=== PATIENT | male | born 1955 | race Caucasian/White ===

== ENCOUNTER 2019-03-06 13:56 | Inpatient (IN) | payer MEDICARE, OTHER ==
[~2019-03-06] VITALS: Ht 182.9 cm; Wt 108.3 kg
--- NOTE | 2019-03-06 14:17 | NUR ---
PT AMBULATORY TO ROOM 17 W/ C/O DIZZINESS AND FEELINGS OF "THE GROUND IS MOVING". SX LAST 15-20 SEC WHEN PT MOVES HIS HEAD LEFT OR RIGHT. THE SX THAT GOT PT CONCERNED STARTED YESTERDAY. PT DENIES HAVING FEELINGS OF NEAR SYNCOPE. PT RESTING ON ANAHI. JAGJIT.
--- NOTE | 2019-03-06 14:29 | NUR ---
ERP DR. EASLEY NOTIFIED OF PT ORTHOSTATIC VS.
[2019-03-06] MEDS ORDERED: SODIUM CHLORIDE FLUSH 10ML SYR IVF ONE (14:30)
[2019-03-06] MEDS ORDERED: HYDR25TA11 PO (14:34)
[2019-03-06] MEDS ORDERED: METF500T17 PO (14:34)
[2019-03-06] MEDS ORDERED: LOSA50TA14 PO (14:34)
[2019-03-06] MEDS ORDERED: GABA600T7 PO (14:34)
[2019-03-06] MEDS ORDERED: HYDR25TA6 PO (14:34)
[2019-03-06 14:38] LABS: BASOPHILS # (AUTO) 0.07 x10^3/uL (0-0.1); BASOPHILS % (AUTO) 1 % (0-1); EOSINOPHILS # (AUTO) 0.21 x10^3/uL (0-0.4); EOSINOPHILS % (AUTO) 2 % (1-7); LYMPHOCYTES # (AUTO) 1.87 x10^3/uL (1-3.4); LYMPHOCYTES % (AUTO) 17 % (22-44); MD NO; MEAN CORPUSCULAR HEMOGLOBIN 33.8 pg (27.5-34.5); MEAN CORPUSCULAR HGB CONC 33.3 g/dL (33.2-36.2); MEAN CORPUSCULAR VOLUME 101.6 fL (81-97); MEAN PLATELET VOLUME 9.2 fL (7.4-10.4); MONOCYTES # (AUTO) 0.88 x10^3/uL (0.2-0.8); MONOCYTES % (AUTO) 8 % (2-9); NEUTROPHILS # (AUTO) 7.93 x10^3/uL (1.8-6.8); NEUTROPHILS % (AUTO) 72 % (42-75); PLATELET COUNT 168 x10^3/uL (130-400); RED BLOOD COUNT 4.83 x10^6/uL (4.38-5.82)
[2019-03-06 14:49] LABS: ALBUMIN 3.5 g/dL (3.4-5.0); ANION GAP 6 mmol/L (5-15); CALCIUM 9.9 mg/dL (8.5-10.1); CHLORIDE 103 mmol/L (98-107); CREATININE 2.12 mg/dL (0.7-1.3)
[2019-03-06 14:53] LABS: TROPONIN I < 0.015 ng/mL (0.000-0.045)
--- NOTE | 2019-03-06 14:53 | NUR ---
XR AT BEDSIDE.
--- NOTE | 2019-03-06 15:12 | NUR ---
ERP DR. EASLEY MADE AWARE OF BUN/CREATININE LEVEL AND CT W/ CONTRAST ORDERS.
[2019-03-06] MEDS ORDERED: SODIUM CHLORIDE 0.9% 1,000ML IVBOLUS ONE ×3 (15:30→16:30)
--- NOTE | 2019-03-06 15:55 | NUR ---
PT RESTING ON GURNEY. NADN. MARADIAGA.
--- NOTE | 2019-03-06 16:15 | NUR ---
PT ONLY HAD 100 ML VOIDED URINE. ERP NOTIFIED AND PT PLACED FOR RECHECK.
--- NOTE | 2019-03-06 17:12 | NUR ---
PT RESTING ON GURNEY. LUDWIG VSS. PT STATES HE WILL DETERMINE AMA VS ADMIT STATUS ONCE PT FINDS OUT INFORMATION ABOUT S/O.
[2019-03-06] MEDS ORDERED: SODIUM CHLORIDE 0.9% 1,000 ML IV ONE (17:34)
--- NOTE | 2019-03-06 18:03 | NUR ---
PT RESTING ON GURNEY. NADN. MARADIAGA.
[2019-03-06] MEDS ORDERED: LORazepam 1MG TABLET PO PRN (18:30)
[2019-03-06] MEDS ORDERED: hydrALAzine 20 MG/ML, 1ML IVPush PRN (18:30)
--- NOTE | 2019-03-06 18:32 | NUR ---
REPORT GIVEN TO ALBA KHAN RN. ALL QUESTIONS ANSWERED. AWAITING PT TRANSPORT.
[2019-03-06 19:15] LABS: HEMOGLOBIN A1C 6.7 % (4.2-6.3)
[2019-03-06 19:51] LABS: MICROSCOPIC NOT IND
[2019-03-06 19:52] LABS: CULTURE INDICATED? NO
[2019-03-06 20:54] VITALS: BP 126/81
[2019-03-06] MEDS: INSULIN LISPRO 100 UNITS/ML, PEN SQ-INSULIN SCH (21:00)
[2019-03-06] MEDS: GABAPENTIN 300 MG CAPSULE PO SCH (21:48)
[2019-03-06] MEDS: SODIUM CHLORIDE 0.9% 1,000 ML IV SCH (21:49)
[2019-03-06] MEDS: HEPARIN 5,000 UNITS/ML, 1ML SQ SCH (21:49)
[2019-03-06 22:00] VITALS: BP 107/69
[2019-03-06] MEDS ORDERED: TACR0.5C2 PO (22:18)
[2019-03-07 04:44] VITALS: BP 124/77
[2019-03-07] MEDS: SODIUM CHLORIDE 0.9% 1,000 ML IV SCH (04:48)
[2019-03-07] MEDS: HEPARIN 5,000 UNITS/ML, 1ML SQ SCH (04:49)
[2019-03-07 05:04] LABS: BASOPHILS # (AUTO) 0.04 x10^3/uL (0-0.1); BASOPHILS % (AUTO) 1 % (0-1); EOSINOPHILS # (AUTO) 0.27 x10^3/uL (0-0.4); EOSINOPHILS % (AUTO) 3 % (1-7); LYMPHOCYTES % (AUTO) 24 % (22-44); MD NO; MEAN CORPUSCULAR HEMOGLOBIN 34.1 pg (27.5-34.5); MEAN CORPUSCULAR HGB CONC 33.2 g/dL (33.2-36.2); MEAN CORPUSCULAR VOLUME 102.6 fL (81-97); MEAN PLATELET VOLUME 9.5 fL (7.4-10.4); MONOCYTES # (AUTO) 0.76 x10^3/uL (0.2-0.8); MONOCYTES % (AUTO) 9 % (2-9); NEUTROPHILS # (AUTO) 5.54 x10^3/uL (1.8-6.8); NEUTROPHILS % (AUTO) 64 % (42-75); PLATELET COUNT 137 x10^3/uL (130-400); RED BLOOD COUNT 4.25 x10^6/uL (4.38-5.82); RED CELL DISTRIBUTION WIDTH 13.4 % (9.4-14.8)
[2019-03-07 05:07] LABS: ALANINE AMINOTRANSFERASE 24 U/L (12-78); ALBUMIN 2.8 g/dL (3.4-5.0); ANION GAP 3 mmol/L (5-15); CALCIUM 8.8 mg/dL (8.5-10.1); CHLORIDE 110 mmol/L (98-107); CREATININE 1.27 mg/dL (0.7-1.3)
[2019-03-07 05:09] LABS: ALKALINE PHOSPHATASE 38 U/L (45-117); BILIRUBIN,TOTAL 0.7 mg/dL (0.2-1.0); TOTAL PROTEIN 5.6 g/dL (6.4-8.2)
[2019-03-07] MEDS: INSULIN LISPRO 100 UNITS/ML, PEN SQ-INSULIN SCH ×2 (07:00→11:00)
[2019-03-07 07:27] VITALS: BP 115/78
[2019-03-07] MEDS: GABAPENTIN 300 MG CAPSULE PO SCH (09:32)
[2019-03-07 13:19] VITALS: BP 124/76
== END 2019-03-07 14:42 | disposition home or self-care (01) | DRG 640 ==
LOC: ED 16:48 → EDIP 18:10 → 3NE 19:31 → DCLOUNGE 03-07 14:24
PROVIDERS: ADMIT Family Medicine; ATTEND Family Medicine
DX: E86.0 Dehydration (principal); N17.0 Acute kidney failure with tubular necrosis; Z87.891 Personal history of nicotine dependence; E11.40 Type 2 diabetes mellitus with diabetic neuropathy, unspecified; E11.65 Type 2 diabetes mellitus with hyperglycemia; I95.9 Hypotension, unspecified; E86.1 Hypovolemia; I10 Essential (primary) hypertension; I71.4 Abdominal aortic aneurysm, without rupture; Z79.84 Long term (current) use of oral hypoglycemic drugs; Z72.89 Other problems related to lifestyle; Z71.41 Alcohol abuse counseling and surveillance of alcoholic
CPT/HCPCS: 36415; 71045; 76770; 80048; 80053; 81003; 82040; 82962; 83036; 83880; 84484; 85025; 93005; 96360; 96361; G0378; J1644; J1815; J7030

== ENCOUNTER 2019-05-15 05:23 | Inpatient (IN) | payer MEDICARE ==
[~2019-05-15] VITALS: Ht 182.9 cm; Wt 94.0 kg
[~2019-05-15 05:23] MED LIST: ATOR10TA9 PO; BIOT25005 PO; GABA600T7 PO; HYDR-826 PO; HYDR25TA6 PO; LOSA50TA14 PO; MAGNESIUM PO; METF500T17 PO; TACR0.5C2 PO; prevagen PO
[2019-05-15] MEDS ORDERED: LACTATED RINGERS 1,000 ML IV SCH (06:07)
[2019-05-15 06:10] VITALS: BP 137/95
[2019-05-15] MEDS ORDERED: PROTAMINE SULFATE 10 MG/ML, 5ML ONE (07:05)
[2019-05-15] MEDS ORDERED: THROMBIN (RECOMBINANT) 20,000 UNIT VIAL TP ONE (07:05)
[2019-05-15] MEDS ORDERED: HEPARIN 1,000 UNITS/ML, 30ML ONE ×3 (07:05→09:19)
[2019-05-15] MEDS ORDERED: BACITRACIN 50,000 UNIT ONE (07:06)
[2019-05-15] MEDS ORDERED: NITROGLYCERIN 5 MG/ML, 10ML ONE (07:23)
[2019-05-15] MEDS ORDERED: ALBUMIN HUMAN 5% 500 ML ONE (07:24)
[2019-05-15] MEDS ORDERED: MIDAZOLAM 1 MG/ML, 2ML ONE (07:25)
[2019-05-15] MEDS ORDERED: FENTANYL PF 250 MCG/5ML ONE ×3 (07:26→09:04)
[2019-05-15] MEDS ORDERED: ONDANSETRON ODT 8 MG PO PRN (07:30)
[2019-05-15] MEDS ORDERED: ONDANSETRON 2MG/ML, 2ML IV PRN ×2 (07:30→12:30)
[2019-05-15] MEDS ORDERED: ACETAMINOPHEN 325 MG TABLET PO PRN ×2 (07:30→15:00)
[2019-05-15] MEDS ORDERED: PROMETHAZINE 25 MG/ML, 1ML IV PRN (07:30)
[2019-05-15] MEDS ORDERED: LORazepam 2 MG/ML, 1ML IVPush PRN (07:30)
[2019-05-15] MEDS ORDERED: FENTANYL PF 100 MCG/2ML IV PRN (07:30)
[2019-05-15] MEDS ORDERED: OXYcodone 5 MG/5 ML ORAL.SOL UDC PO PRN (07:30)
[2019-05-15] MEDS ORDERED: PHENYLEPHRINE 10 MG/ML ONE (07:38)
[2019-05-15] MEDS ORDERED: CALCIUM CHLORIDE 13.6 MEQ/10 ML ONE (07:38)
[2019-05-15] MEDS ORDERED: INSULIN SINGLE DOSE, ER SQ-INSULIN ONE (08:46)
[2019-05-15] MEDS ORDERED: DEXTROSE 50%, 50ML SYRINGE ONE (09:00)
[2019-05-15] MEDS ORDERED: PROPOFOL 10 MG/ML, 20ML ONE (09:48)
[2019-05-15] MEDS ORDERED: hydrALAzine 20 MG/ML, 1ML ONE ×2 (09:48→10:28)
[2019-05-15] MEDS ORDERED: GLYCOPYRROLATE 0.2MG/1ML, 5ML ONE (09:48)
[2019-05-15] MEDS ORDERED: SUCCINYLCHOLINE 20 MG/ML, 10ML ONE (09:48)
[2019-05-15] MEDS ORDERED: NEOSTIGMINE 1 MG/ML, 10ML ONE (09:48)
[2019-05-15] MEDS ORDERED: ROCURONIUM 10MG/ML,5ML ONE (09:48)
[2019-05-15] MEDS ORDERED: DEXAMETHASONE 4 MG/ML, 1ML ONE (09:48)
[2019-05-15] MEDS ORDERED: CEFAZOLIN 1,000 MG ONE (09:48)
[2019-05-15] MEDS ORDERED: ONDANSETRON 2MG/ML, 2ML ONE (09:48)
[2019-05-15] MEDS ORDERED: SUGAMMADEX 200 MG/2 ML IVPush ONE (09:51)
[2019-05-15] MEDS ORDERED: LABETALOL 5MG/ML, 20ML IV PRN (10:00)
[2019-05-15] MEDS ORDERED: hydrALAzine 20 MG/ML, 1ML IV PRN (10:00)
[2019-05-15] MEDS ORDERED: HYDROmorphone 2 MG/ML, 1ML ONE (10:28)
[2019-05-15] MEDS: HYDROmorphone 2 MG/ML, 1ML IVPush PRN ×4 (10:37→11:11)
[2019-05-15] MEDS ORDERED: LORazepam 2 MG/ML, 1ML ONE (10:42)
[2019-05-15] MEDS ORDERED: LABETALOL 5 MG/ML SYR. (IV ONLY) IV PRN (11:30)
[2019-05-15] MEDS: POTASSIUM CHLORIDE 20 MEQ in LACTATED RINGERS 1,000 ML IV SCH ×2 (13:20→22:07)
[2019-05-15] MEDS: morphine SULFATE 10 MG/ML, 1ML IV PRN ×3 (13:32→23:03)
[2019-05-15 13:48] LABS: ANION GAP 6 mmol/L (5-15); CALCIUM 8.8 mg/dL (8.5-10.1); CHLORIDE 110 mmol/L (98-107); CREATININE 0.87 mg/dL (0.7-1.3)
[2019-05-15 13:49] LABS: BASOPHILS # (AUTO) 0.01 x10^3/uL (0-0.1); BASOPHILS % (AUTO) 0 % (0-1); EOSINOPHILS # (AUTO) 0.01 x10^3/uL (0-0.4); EOSINOPHILS % (AUTO) 0 % (1-7); LYMPHOCYTES # (AUTO) 0.98 x10^3/uL (1-3.4); LYMPHOCYTES % (AUTO) 7 % (22-44); MD NO; MEAN CORPUSCULAR HEMOGLOBIN 33.8 pg (27.5-34.5); MEAN CORPUSCULAR HGB CONC 33.7 g/dL (33.2-36.2); MEAN CORPUSCULAR VOLUME 100.4 fL (81-97); MEAN PLATELET VOLUME 8.9 fL (7.4-10.4); MONOCYTES # (AUTO) 0.84 x10^3/uL (0.2-0.8); MONOCYTES % (AUTO) 6 % (2-9); NEUTROPHILS # (AUTO) 13.05 x10^3/uL (1.8-6.8); NEUTROPHILS % (AUTO) 88 % (42-75); PLATELET COUNT 133 x10^3/uL (130-400)
[2019-05-15] MEDS ORDERED: BISACODYL 10 MG SUPP PR PRN (15:00)
[2019-05-15] MEDS ORDERED: POLYETHYLENE GLYCOL 17 GM PACKET PO PRN (15:00)
[2019-05-15] MEDS ORDERED: ONDANSETRON 2MG/ML, 2ML IVPush PRN (15:00)
[2019-05-15] MEDS: OXYcodone IR 5MG TABLET PO PRN ×4 (15:36→20:41)
[2019-05-15] MEDS: LABETALOL 5MG/ML, 20ML IVPush PRN (15:38)
[2019-05-15] MEDS: CEFAZOLIN PMX 1GM/50ML 50 ML IVPB SCH (16:55)
[2019-05-15] MEDS: INSULIN REGULAR, HUMAN 100 UNITS/ML, 3ML MEDIUM DOSE SS SQ-INSULIN SCH ×2 (16:55→21:31)
[2019-05-15] MEDS: ENALAPRILAT 1.25 MG/ML, 2ML IVPush PRN (17:57)
[2019-05-15] MEDS ORDERED: MORPHINE SULFATE 4 MG/ML, 1ML ONE (23:00)
[2019-05-16] MEDS: CEFAZOLIN PMX 1GM/50ML 50 ML IVPB SCH (00:59)
[2019-05-16] MEDS: OXYcodone IR 5MG TABLET PO PRN ×4 (00:59→15:31)
[2019-05-16] MEDS ORDERED: MORPHINE SULFATE 4 MG/ML, 1ML ONE ×2 (01:52→04:21)
[2019-05-16] MEDS: morphine SULFATE 10 MG/ML, 1ML IV PRN ×2 (01:54→04:22)
[2019-05-16 04:46] LABS: MEAN CORPUSCULAR HEMOGLOBIN 33.5 pg (27.5-34.5); MEAN CORPUSCULAR HGB CONC 32.7 g/dL (33.2-36.2); MEAN CORPUSCULAR VOLUME 102.5 fL (81-97); MEAN PLATELET VOLUME 8.6 fL (7.4-10.4); PLATELET COUNT 128 x10^3/uL (130-400); RED BLOOD COUNT 4.53 x10^6/uL (4.38-5.82); RED CELL DISTRIBUTION WIDTH 14.4 % (9.4-14.8)
[2019-05-16 04:55] LABS: ALBUMIN 3.2 g/dL (3.4-5.0); ANION GAP 7 mmol/L (5-15); CALCIUM 8.8 mg/dL (8.5-10.1); CHLORIDE 106 mmol/L (98-107)
[2019-05-16 04:59] LABS: ALANINE AMINOTRANSFERASE 31 U/L (12-78); ALKALINE PHOSPHATASE 48 U/L (45-117); BILIRUBIN,TOTAL 0.9 mg/dL (0.2-1.0); CREATININE 0.84 mg/dL (0.7-1.3)
[2019-05-16] MEDS ORDERED: HYDROmorphone 2 MG/ML, 1ML ONE (05:24)
[2019-05-16] MEDS: ENOXAPARIN 40 MG/0.4 ML SQ SCH (05:25)
[2019-05-16] MEDS: HYDROmorphone 2 MG/ML, 1ML IVPush PRN ×3 (05:26→17:45)
[2019-05-16 05:41] LABS: BASOPHILS # (AUTO) 0.02 x10^3/uL (0-0.1); BASOPHILS % (AUTO) 0 % (0-1); EOSINOPHILS # (AUTO) 0.04 x10^3/uL (0-0.4); EOSINOPHILS % (AUTO) 0 % (1-7); LYMPHOCYTES # (AUTO) 1.78 x10^3/uL (1-3.4); LYMPHOCYTES % (AUTO) 14 % (22-44); MD SCAN; MONOCYTES # (AUTO) 1.35 x10^3/uL (0.2-0.8); MONOCYTES % (AUTO) 10 % (2-9); NEUTROPHILS # (AUTO) 9.95 x10^3/uL (1.8-6.8); NEUTROPHILS % (AUTO) 76 % (42-75)
[2019-05-16] MEDS: POTASSIUM CHLORIDE 20 MEQ in LACTATED RINGERS 1,000 ML IV SCH (06:46)
[2019-05-16] MEDS: INSULIN REGULAR, HUMAN 100 UNITS/ML, 3ML MEDIUM DOSE SS SQ-INSULIN SCH ×4 (07:00→23:11)
[2019-05-16] MEDS: POTASSIUM CHLORIDE 20 MEQ, MAGNESIUM SULFATE 1 GM, MVI ADULT 10 ML, THIAMINE 200 MG, FO... IV SCH (08:07)
[2019-05-16] MEDS: SENNA/DOCUSATE TABLET PO SCH (08:07)
[2019-05-16] MEDS: CHLORDIAZEPOXIDE 25 MG CAPSULE PO SCH ×4 (08:07→20:20)
[2019-05-16] MEDS: LORazepam 2 MG/ML, 1ML IVPush PRN (20:20)
[2019-05-16] MEDS: LABETALOL 5MG/ML, 20ML IVPush PRN (20:20)
[2019-05-17] MEDS: LABETALOL 5MG/ML, 20ML IVPush PRN ×4 (00:59→20:29)
[2019-05-17] MEDS: HYDROmorphone 2 MG/ML, 1ML IVPush PRN ×2 (01:14→22:40)
[2019-05-17 04:41] LABS: MEAN CORPUSCULAR HEMOGLOBIN 33.9 pg (27.5-34.5); MEAN CORPUSCULAR HGB CONC 32.6 g/dL (33.2-36.2); MEAN CORPUSCULAR VOLUME 103.9 fL (81-97); MEAN PLATELET VOLUME 8.9 fL (7.4-10.4); PLATELET COUNT 110 x10^3/uL (130-400); RED BLOOD COUNT 4.21 x10^6/uL (4.38-5.82); RED CELL DISTRIBUTION WIDTH 14.4 % (9.4-14.8)
[2019-05-17 04:52] LABS: ALANINE AMINOTRANSFERASE 27 U/L (12-78); ALBUMIN 2.8 g/dL (3.4-5.0); ANION GAP 5 mmol/L (5-15); CALCIUM 8.9 mg/dL (8.5-10.1); CHLORIDE 104 mmol/L (98-107); CREATININE 0.77 mg/dL (0.7-1.3)
[2019-05-17 04:55] LABS: ALKALINE PHOSPHATASE 48 U/L (45-117); BILIRUBIN,TOTAL 1.5 mg/dL (0.2-1.0); TOTAL PROTEIN 5.9 g/dL (6.4-8.2)
[2019-05-17] MEDS: CHLORDIAZEPOXIDE 25 MG CAPSULE PO SCH ×4 (05:42→21:47)
[2019-05-17] MEDS: ENOXAPARIN 40 MG/0.4 ML SQ SCH ×2 (05:42→16:30)
[2019-05-17] MEDS: INSULIN REGULAR, HUMAN 100 UNITS/ML, 3ML MEDIUM DOSE SS SQ-INSULIN SCH ×4 (05:43→21:47)
[2019-05-17 05:50] LABS: BASOPHILS # (AUTO) 0.01 x10^3/uL (0-0.1); BASOPHILS % (AUTO) 0 % (0-1); EOSINOPHILS # (AUTO) 0.02 x10^3/uL (0-0.4); EOSINOPHILS % (AUTO) 0 % (1-7); LYMPHOCYTES # (AUTO) 0.89 x10^3/uL (1-3.4); LYMPHOCYTES % (AUTO) 6 % (22-44); MD SCAN; MONOCYTES # (AUTO) 1.52 x10^3/uL (0.2-0.8); MONOCYTES % (AUTO) 11 % (2-9); NEUTROPHILS # (AUTO) 11.41 x10^3/uL (1.8-6.8); NEUTROPHILS % (AUTO) 82 % (42-75)
[2019-05-17] MEDS ORDERED: MAGNESIUM SULFATE 4 GM in SODIUM CHLORIDE 0.9% 100 ML IV ONE (07:30)
[2019-05-17] MEDS: POTASSIUM CHLORIDE 20 MEQ, MAGNESIUM SULFATE 1 GM, MVI ADULT 10 ML, THIAMINE 200 MG, FO... IV SCH (08:51)
[2019-05-17] MEDS: SENNA/DOCUSATE TABLET PO SCH (11:00)
[2019-05-17] MEDS: OXYcodone IR 5MG TABLET PO PRN (13:09)
[2019-05-17] MEDS: LORazepam 2 MG/ML, 1ML IVPush PRN ×6 (15:37→22:39)
[2019-05-17] MEDS: SODIUM CHLORIDE 0.9% 1,000 ML IV SCH (18:40)
[2019-05-18] MEDS: LABETALOL 5MG/ML, 20ML IVPush PRN ×3 (04:40→19:07)
[2019-05-18 05:24] LABS: MEAN CORPUSCULAR HEMOGLOBIN 34.4 pg (27.5-34.5); MEAN CORPUSCULAR HGB CONC 33.1 g/dL (33.2-36.2); MEAN CORPUSCULAR VOLUME 103.9 fL (81-97); MEAN PLATELET VOLUME 9.2 fL (7.4-10.4); PLATELET COUNT 125 x10^3/uL (130-400); RED BLOOD COUNT 4.12 x10^6/uL (4.38-5.82); RED CELL DISTRIBUTION WIDTH 14.7 % (9.4-14.8)
[2019-05-18] MEDS ORDERED: NALOXONE 0.4 MG/ML, 1ML IVPush ONE (05:30)
[2019-05-18] MEDS ORDERED: FUROSEMIDE 20 MG/2 ML IV ONE (05:30)
[2019-05-18 05:33] LABS: ANION GAP 4 mmol/L (5-15); CALCIUM 9.1 mg/dL (8.5-10.1); CHLORIDE 103 mmol/L (98-107)
[2019-05-18] MEDS: CHLORDIAZEPOXIDE 25 MG CAPSULE PO SCH ×4 (06:00→20:17)
[2019-05-18] MEDS: INSULIN REGULAR, HUMAN 100 UNITS/ML, 3ML MEDIUM DOSE SS SQ-INSULIN SCH ×2 (06:02→11:00)
[2019-05-18 06:16] LABS: BASOPHILS % (AUTO) 0 % (0-1); EOSINOPHILS # (AUTO) 0.17 x10^3/uL (0-0.4); EOSINOPHILS % (AUTO) 1 % (1-7); LYMPHOCYTES # (AUTO) 0.84 x10^3/uL (1-3.4); LYMPHOCYTES % (AUTO) 6 % (22-44); MD SCAN; MONOCYTES # (AUTO) 1.61 x10^3/uL (0.2-0.8); MONOCYTES % (AUTO) 11 % (2-9); NEUTROPHILS # (AUTO) 11.49 x10^3/uL (1.8-6.8); NEUTROPHILS % (AUTO) 81 % (42-75)
[2019-05-18] MEDS ORDERED: [UNRECOGNIZED DRUG - OTHER] IV PRN (08:30)
[2019-05-18] MEDS ORDERED: NICARDIPINE IV PRN ×2 (08:30→14:00)
[2019-05-18] MEDS: ENALAPRILAT 1.25 MG/ML, 2ML IVPush PRN (08:42)
[2019-05-18] MEDS: SENNA/DOCUSATE TABLET PO SCH (09:00)
[2019-05-18] MEDS: POTASSIUM CHLORIDE 20 MEQ, MAGNESIUM SULFATE 1 GM, MVI ADULT 10 ML, THIAMINE 200 MG, FO... IV SCH (09:31)
[2019-05-18] MEDS: LORazepam 2 MG/ML, 1ML IVPush PRN ×6 (11:05→23:16)
[2019-05-18] MEDS: INSULIN REGULAR 100 UNITS/ML, 3ML VIAL SQ-INSULIN SCH ×2 (12:01→17:58)
[2019-05-18] MEDS ORDERED: SODIUM CHLORIDE 0.9% IV PRN (14:00)
[2019-05-18] MEDS: ENOXAPARIN 40 MG/0.4 ML SQ SCH (16:34)
[2019-05-18] MEDS: SODIUM CHLORIDE 0.9% 1,000 ML IV SCH (20:00)
[2019-05-19] MEDS: LORazepam 2 MG/ML, 1ML IVPush PRN ×6 (00:58→11:44)
[2019-05-19 04:16] LABS: BASOPHILS # (AUTO) 0.02 x10^3/uL (0-0.1); BASOPHILS % (AUTO) 0 % (0-1); EOSINOPHILS # (AUTO) 0.21 x10^3/uL (0-0.4); EOSINOPHILS % (AUTO) 2 % (1-7); LYMPHOCYTES # (AUTO) 0.69 x10^3/uL (1-3.4); LYMPHOCYTES % (AUTO) 7 % (22-44); MD NO; MEAN CORPUSCULAR HEMOGLOBIN 34.1 pg (27.5-34.5); MEAN CORPUSCULAR HGB CONC 33.2 g/dL (33.2-36.2); MEAN CORPUSCULAR VOLUME 102.7 fL (81-97); MEAN PLATELET VOLUME 8.3 fL (7.4-10.4); MONOCYTES # (AUTO) 1.36 x10^3/uL (0.2-0.8); MONOCYTES % (AUTO) 14 % (2-9); NEUTROPHILS # (AUTO) 7.79 x10^3/uL (1.8-6.8); NEUTROPHILS % (AUTO) 77 % (42-75); PLATELET COUNT 153 x10^3/uL (130-400); RED BLOOD COUNT 3.86 x10^6/uL (4.38-5.82); RED CELL DISTRIBUTION WIDTH 14.1 % (9.4-14.8)
[2019-05-19 04:24] LABS: ANION GAP 4 mmol/L (5-15); CALCIUM 8.9 mg/dL (8.5-10.1); CHLORIDE 105 mmol/L (98-107); CREATININE 0.66 mg/dL (0.7-1.3)
[2019-05-19] MEDS: INSULIN REGULAR 100 UNITS/ML, 3ML VIAL SQ-INSULIN SCH ×4 (05:44→17:52)
[2019-05-19] MEDS ORDERED: DEXMEDETOMIDINE 200 MCG in SODIUM CHLORIDE 0.9% 48 ML IV PRN (08:00)
--- NOTE | 2019-05-19 08:35 | NUR ---
TF goal recs: Promote @ 85 ml/hour on propofol and 90 ml/hour off propofol
[2019-05-19] MEDS: CHLORDIAZEPOXIDE 25 MG CAPSULE PO SCH (09:34)
[2019-05-19] MEDS: SENNA/DOCUSATE TABLET PO SCH (09:34)
[2019-05-19] MEDS: POTASSIUM CHLORIDE 20 MEQ, MAGNESIUM SULFATE 1 GM, MVI ADULT 10 ML, THIAMINE 200 MG, FO... IV SCH (09:39)
[2019-05-19] MEDS: PROPOFOL 100 ML IV PRN ×2 (12:40→22:34)
[2019-05-19] MEDS ORDERED: LIDOCAINE-MPF 1%, 2ML ENDO PRN (13:00)
[2019-05-19] MEDS ORDERED: PHARMACY MAY ADJ FOR RENAL FX MC SCH (13:00)
[2019-05-19] MEDS ORDERED: ETOMIDATE 20 MG/10 ML IVPush ONE (13:30)
[2019-05-19] MEDS ORDERED: MIDAZOLAM 1 MG/ML, 5ML IVPush ONE (13:30)
[2019-05-19] MEDS: PANTOPRAZOLE 40 MG IV IV SCH (14:45)
[2019-05-19] MEDS: MIDAZOLAM HCL 25 MG in SODIUM CHLORIDE 0.9% 245 ML IV PRN ×2 (14:46→22:33)
[2019-05-19] MEDS: ENOXAPARIN 40 MG/0.4 ML SQ SCH (16:44)
[2019-05-19] MEDS: SODIUM CHLORIDE 0.9% 1,000 ML IV SCH (20:00)
[2019-05-19] MEDS: morphine SULFATE 10 MG/ML, 1ML IV PRN (22:35)
[2019-05-20 05:47] LABS: MEAN CORPUSCULAR HEMOGLOBIN 34.2 pg (27.5-34.5); MEAN CORPUSCULAR HGB CONC 33.6 g/dL (33.2-36.2); MEAN CORPUSCULAR VOLUME 101.6 fL (81-97); MEAN PLATELET VOLUME 8.8 fL (7.4-10.4); PLATELET COUNT 154 x10^3/uL (130-400); RED BLOOD COUNT 3.71 x10^6/uL (4.38-5.82); RED CELL DISTRIBUTION WIDTH 14.6 % (9.4-14.8)
[2019-05-20 05:57] LABS: ANION GAP 5 mmol/L (5-15); CALCIUM 8.4 mg/dL (8.5-10.1); CHLORIDE 109 mmol/L (98-107); CREATININE 0.59 mg/dL (0.7-1.3)
[2019-05-20] MEDS: INSULIN REGULAR 100 UNITS/ML, 3ML VIAL SQ-INSULIN SCH ×5 (06:00→23:38)
[2019-05-20 06:26] LABS: MD YES
[2019-05-20 06:31] LABS: ANISOCYTOSIS 1+; BAND#(MANUAL) 0.75 x10^3/uL; BANDS%(MANUAL) 10 % (0-7); EOS#(MANUAL) 0.23 x10^3/uL (0.0-0.4); EOS% (MANUAL) 3 % (1-7); LYMPH#(MANUAL) 1.05 x10^3/uL (1-3.4); LYMPHS% (MANUAL) 14 % (22-44); MONOS#(MANUAL) 0.45 x10^3/uL (0.3-2.7); MONOS% (MANUAL) 6 % (2-9); SEG#(MANUAL) 5.03 x10^3/uL (1.8-6.8); SEGS% (MANUAL) 67 % (42-75)
[2019-05-20 06:32] LABS: <PLATELET ESTIMATE> ADEQUATE; <PLT MORPHOLOGY> NORMAL PLT MORPH
[2019-05-20] MEDS: POTASSIUM CHLORIDE 20 MEQ, MAGNESIUM SULFATE 1 GM, MVI ADULT 10 ML, THIAMINE 200 MG, FO... IV SCH (08:00)
[2019-05-20] MEDS: MIDAZOLAM HCL 25 MG in SODIUM CHLORIDE 0.9% 245 ML IV PRN ×2 (08:00→16:43)
[2019-05-20] MEDS: SENNA/DOCUSATE TABLET PO SCH (09:08)
[2019-05-20] MEDS: PANTOPRAZOLE 40 MG IV IV SCH (09:08)
[2019-05-20] MEDS: METOCLOPRAMIDE 5 MG/ML, 2ML IVPush SCH ×3 (11:19→23:38)
[2019-05-20] MEDS: PROPOFOL 100 ML IV PRN ×2 (11:19→16:44)
[2019-05-20] MEDS: SODIUM CHLORIDE 0.9% 1,000 ML IV SCH (16:43)
[2019-05-20] MEDS: ENOXAPARIN 40 MG/0.4 ML SQ SCH (16:45)
[2019-05-21] MEDS: MIDAZOLAM HCL 25 MG in SODIUM CHLORIDE 0.9% 245 ML IV PRN ×3 (00:04→17:31)
[2019-05-21] MEDS: PROPOFOL 100 ML IV PRN ×4 (01:03→23:40)
[2019-05-21 04:12] LABS: BASOPHILS # (AUTO) 0.02 x10^3/uL (0-0.1); BASOPHILS % (AUTO) 0 % (0-1); EOSINOPHILS # (AUTO) 0.21 x10^3/uL (0-0.4); EOSINOPHILS % (AUTO) 2 % (1-7); LYMPHOCYTES % (AUTO) 9 % (22-44); MD NO; MEAN CORPUSCULAR HEMOGLOBIN 33.9 pg (27.5-34.5); MEAN CORPUSCULAR HGB CONC 33.1 g/dL (33.2-36.2); MEAN CORPUSCULAR VOLUME 102.2 fL (81-97); MEAN PLATELET VOLUME 8.8 fL (7.4-10.4); MONOCYTES # (AUTO) 1.08 x10^3/uL (0.2-0.8); MONOCYTES % (AUTO) 12 % (2-9); NEUTROPHILS # (AUTO) 7.05 x10^3/uL (1.8-6.8); NEUTROPHILS % (AUTO) 77 % (42-75); PLATELET COUNT 130 x10^3/uL (130-400); RED BLOOD COUNT 3.54 x10^6/uL (4.38-5.82); RED CELL DISTRIBUTION WIDTH 14.6 % (9.4-14.8)
[2019-05-21 04:23] LABS: ANION GAP 6 mmol/L (5-15); CALCIUM 8.4 mg/dL (8.5-10.1); CHLORIDE 111 mmol/L (98-107); CREATININE 0.57 mg/dL (0.7-1.3)
[2019-05-21] MEDS: METOCLOPRAMIDE 5 MG/ML, 2ML IVPush SCH ×4 (04:46→23:39)
[2019-05-21] MEDS: INSULIN REGULAR 100 UNITS/ML, 3ML VIAL SQ-INSULIN SCH ×4 (06:00→23:39)
[2019-05-21] MEDS ORDERED: MIDAZOLAM 1 MG/ML, 5ML ONE (08:00)
[2019-05-21] MEDS ORDERED: ETOMIDATE 20 MG/10 ML ONE (08:00)
[2019-05-21] MEDS ORDERED: PROPOFOL 100 ML IV ONE (08:00)
[2019-05-21] MEDS ORDERED: TPN PER PHARMACY MC PRN (09:00)
[2019-05-21] MEDS: SENNA/DOCUSATE TABLET PO SCH (09:00)
[2019-05-21] MEDS: PANTOPRAZOLE 40 MG IV IV SCH (09:49)
[2019-05-21] MEDS ORDERED: SODIUM CHLORIDE 0.9% 1,000 ML IV SCH (12:00)
[2019-05-21] MEDS ORDERED: ALBUTEROL/IPRATROPIUM 2.5MG/0.5MG, 3 ML HHN SCH (15:00)
[2019-05-21] MEDS: ENOXAPARIN 40 MG/0.4 ML SQ SCH (16:25)
[2019-05-21] MEDS: FILTER, DISP 1.2 MICRON FOR TPN/PVN IV PRN (16:59)
[2019-05-21] MEDS ORDERED: AMINO ACID 10% IV SCH ×2 (17:00)
[2019-05-21] MEDS ORDERED: [UNRECOGNIZED DRUG - OTHER] IV SCH (17:00)
[2019-05-21] MEDS ORDERED: DEXTROSE 10% 500 ML IV PRN (17:00)
[2019-05-21] MEDS ORDERED: [UNRECOGNIZED DRUG - OTHER] IV SCH (17:00)
[2019-05-21] MEDS ORDERED: DEXTROSE 70% IV SCH ×2 (17:00)
[2019-05-21] MEDS ORDERED: FAT EMUL IV SCH ×2 (17:00)
[2019-05-21] MEDS ORDERED: SMOF TPN IV SCH ×2 (17:00)
[2019-05-21] MEDS ORDERED: DEXTROSE 50%, 50ML SYRINGE IVPush PRN (17:00)
[2019-05-21] MEDS: ALBUTEROL/IPRATROPIUM 2.5MG/0.5MG, 3 ML INLINE SCH ×2 (18:59→22:28)
[2019-05-22] MEDS: ALBUTEROL/IPRATROPIUM 2.5MG/0.5MG, 3 ML INLINE SCH ×6 (02:19→22:28)
[2019-05-22] MEDS: MIDAZOLAM HCL 25 MG in SODIUM CHLORIDE 0.9% 245 ML IV PRN (02:39)
[2019-05-22] MEDS: LABETALOL 5MG/ML, 20ML IVPush PRN ×2 (03:45→08:20)
[2019-05-22] MEDS: PROPOFOL 100 ML IV PRN (05:34)
[2019-05-22] MEDS: METOCLOPRAMIDE 5 MG/ML, 2ML IVPush SCH ×4 (05:34→23:14)
[2019-05-22] MEDS: INSULIN REGULAR 100 UNITS/ML, 3ML VIAL SQ-INSULIN SCH ×4 (05:46→23:13)
[2019-05-22 05:57] LABS: MEAN CORPUSCULAR HEMOGLOBIN 34.3 pg (27.5-34.5); MEAN CORPUSCULAR HGB CONC 33.7 g/dL (33.2-36.2); MEAN CORPUSCULAR VOLUME 101.6 fL (81-97); MEAN PLATELET VOLUME 8.8 fL (7.4-10.4); PLATELET COUNT 93 x10^3/uL (130-400); RED BLOOD COUNT 3.56 x10^6/uL (4.38-5.82); RED CELL DISTRIBUTION WIDTH 14.5 % (9.4-14.8)
[2019-05-22 06:05] LABS: ALBUMIN 2.2 g/dL (3.4-5.0); ANION GAP 7 mmol/L (5-15); CALCIUM 8.6 mg/dL (8.5-10.1); CHLORIDE 111 mmol/L (98-107)
[2019-05-22 06:10] LABS: ALANINE AMINOTRANSFERASE 29 U/L (12-78); ALKALINE PHOSPHATASE 49 U/L (45-117); BILIRUBIN,TOTAL 0.8 mg/dL (0.2-1.0); CREATININE 0.61 mg/dL (0.7-1.3); PREALBUMIN 4.6 mg/dL (20.0-40.0); TOTAL PROTEIN 5.3 g/dL (6.4-8.2); TRIGLYCERIDES 169 mg/dL (50-200)
[2019-05-22 06:17] LABS: BASOPHILS # (AUTO) 0.01 x10^3/uL (0-0.1); BASOPHILS % (AUTO) 0 % (0-1); EOSINOPHILS # (AUTO) 0.16 x10^3/uL (0-0.4); EOSINOPHILS % (AUTO) 2 % (1-7); LYMPHOCYTES # (AUTO) 0.84 x10^3/uL (1-3.4); LYMPHOCYTES % (AUTO) 9 % (22-44); MD SCAN; MONOCYTES % (AUTO) 9 % (2-9); NEUTROPHILS # (AUTO) 7.18 x10^3/uL (1.8-6.8); NEUTROPHILS % (AUTO) 80 % (42-75)
[2019-05-22] MEDS: SENNA/DOCUSATE TABLET PO SCH (09:00)
[2019-05-22] MEDS: PANTOPRAZOLE 40 MG IV IV SCH (09:09)
[2019-05-22] MEDS: DEXMEDETOMIDINE 1,000 MCG in SODIUM CHLORIDE 0.9% 240 ML IV PRN ×2 (10:40→21:45)
[2019-05-22] MEDS: LISINOPRIL 10 MG TABLET PO SCH ×2 (10:43→21:29)
[2019-05-22] MEDS ORDERED: AMINO ACID 10% IV SCH ×2 (17:00)
[2019-05-22] MEDS ORDERED: SMOF TPN IV SCH ×2 (17:00)
[2019-05-22] MEDS ORDERED: FAT EMUL IV SCH ×2 (17:00)
[2019-05-22] MEDS ORDERED: [UNRECOGNIZED DRUG - OTHER] IV SCH ×2 (17:00)
[2019-05-22] MEDS ORDERED: DEXTROSE 70% IV SCH ×2 (17:00)
[2019-05-22] MEDS: LORazepam 2 MG/ML, 1ML IVPush PRN (23:36)
[2019-05-23] MEDS: ALBUTEROL/IPRATROPIUM 2.5MG/0.5MG, 3 ML INLINE SCH ×2 (03:00→07:15)
[2019-05-23] MEDS: METOCLOPRAMIDE 5 MG/ML, 2ML IVPush SCH ×4 (05:27→23:00)
[2019-05-23] MEDS: INSULIN REGULAR 100 UNITS/ML, 3ML VIAL SQ-INSULIN SCH ×3 (05:37→17:21)
[2019-05-23 06:00] LABS: ANION GAP 4 mmol/L (5-15); CALCIUM 8.5 mg/dL (8.5-10.1); CHLORIDE 113 mmol/L (98-107)
[2019-05-23 06:34] LABS: CREATININE 0.62 mg/dL (0.7-1.3)
[2019-05-23] MEDS: DEXMEDETOMIDINE 1,000 MCG in SODIUM CHLORIDE 0.9% 240 ML IV PRN ×2 (06:40→21:17)
[2019-05-23 06:54] LABS: MEAN CORPUSCULAR HEMOGLOBIN 34.4 pg (27.5-34.5); MEAN CORPUSCULAR VOLUME 101.3 fL (81-97); MEAN PLATELET VOLUME 8.4 fL (7.4-10.4); PLATELET COUNT 55 x10^3/uL (130-400); RED BLOOD COUNT 3.69 x10^6/uL (4.38-5.82); RED CELL DISTRIBUTION WIDTH 14.6 % (9.4-14.8)
[2019-05-23 06:59] LABS: BASOPHILS # (AUTO) 0.01 x10^3/uL (0-0.1); BASOPHILS % (AUTO) 0 % (0-1); EOSINOPHILS # (AUTO) 0.16 x10^3/uL (0-0.4); EOSINOPHILS % (AUTO) 2 % (1-7); LYMPHOCYTES # (AUTO) 0.87 x10^3/uL (1-3.4); LYMPHOCYTES % (AUTO) 9 % (22-44); MD SCAN; MONOCYTES % (AUTO) 7 % (2-9); NEUTROPHILS # (AUTO) 7.98 x10^3/uL (1.8-6.8); NEUTROPHILS % (AUTO) 82 % (42-75)
[2019-05-23] MEDS: SENNA/DOCUSATE TABLET PO SCH (07:52)
[2019-05-23] MEDS: LISINOPRIL 10 MG TABLET PO SCH (07:52)
[2019-05-23] MEDS: PANTOPRAZOLE 40 MG IV IV SCH (07:52)
[2019-05-23] MEDS: ENALAPRILAT 1.25 MG/ML, 2ML IVPush PRN (08:52)
[2019-05-23] MEDS ORDERED: INSULIN GLARGINE 100 UNITS/ML, PEN SQ-INSULIN SCH (09:00)
[2019-05-23] MEDS: LABETALOL 5MG/ML, 20ML IVPush PRN (10:08)
[2019-05-23] MEDS ORDERED: GLYCERIN ADULT SUPP PR ONE (11:00)
[2019-05-23] MEDS ORDERED: ALBUTEROL SULFATE 2.5 MG/3 ML NPPB PRN (12:00)
[2019-05-23] MEDS ORDERED: SODIUM CHLORIDE INHALATION 7%, 4 ML NPPB ONE (12:00)
[2019-05-23 13:15] LABS: O2 FLOW 4 L/min
[2019-05-23 14:25] LABS: HIT RESULT NEGATIVE (NEGATIVE)
[2019-05-23] MEDS ORDERED: DEXTROSE 70% IV SCH (17:00)
[2019-05-23] MEDS ORDERED: SMOF TPN IV SCH (17:00)
[2019-05-23] MEDS ORDERED: AMINO ACID 10% IV SCH (17:00)
[2019-05-23] MEDS ORDERED: [UNRECOGNIZED DRUG - OTHER] IV SCH (17:00)
[2019-05-23] MEDS ORDERED: FAT EMUL IV SCH (17:00)
[2019-05-23] MEDS: LISINOPRIL 20 MG TABLET PO SCH (21:17)
[2019-05-23] MEDS: LORazepam 2 MG/ML, 1ML IVPush PRN (21:17)
[2019-05-24] MEDS: INSULIN REGULAR 100 UNITS/ML, 3ML VIAL SQ-INSULIN SCH ×4 (00:21→18:21)
[2019-05-24] MEDS: LORazepam 2 MG/ML, 1ML IVPush PRN ×3 (03:33→21:04)
[2019-05-24 04:45] LABS: ANION GAP 5 mmol/L (5-15); CALCIUM 8.4 mg/dL (8.5-10.1); CHLORIDE 113 mmol/L (98-107); CREATININE 0.64 mg/dL (0.7-1.3)
[2019-05-24] MEDS: METOCLOPRAMIDE 5 MG/ML, 2ML IVPush SCH ×3 (05:00→17:06)
[2019-05-24 05:10] LABS: MEAN CORPUSCULAR HEMOGLOBIN 33.4 pg (27.5-34.5); MEAN CORPUSCULAR HGB CONC 33.4 g/dL (33.2-36.2); RED BLOOD COUNT 3.67 x10^6/uL (4.38-5.82); RED CELL DISTRIBUTION WIDTH 14.2 % (9.4-14.8)
[2019-05-24 05:40] LABS: MEAN PLATELET VOLUME 9.5 fL (7.4-10.4)
[2019-05-24 05:41] LABS: MD YES
[2019-05-24 05:43] LABS: BAND#(MANUAL) 0.84 x10^3/uL; BANDS%(MANUAL) 7 % (0-7); LYMPH#(MANUAL) 0.84 x10^3/uL (1-3.4); LYMPHS% (MANUAL) 7 % (22-44); METAMYELOCYTES# (MANUAL) 0.12 x10^3/uL (0-0); METAMYELOCYTES% (MANUAL) 1 % (0-1); MONOS#(MANUAL) 0.84 x10^3/uL (0.3-2.7); MONOS% (MANUAL) 7 % (2-9); MYELOCYTES# (MANUAL) 0.12 x10^3/uL (0-0); MYELOCYTES% (MANUAL) 1 % (0-0); SEG#(MANUAL) 9.24 x10^3/uL (1.8-6.8); SEGS% (MANUAL) 77 % (42-75)
[2019-05-24 05:45] LABS: <PLATELET ESTIMATE> DECREASED; <PLT MORPHOLOGY> NORMAL PLT MORPH
[2019-05-24 05:51] LABS: PLATELET COUNT 15 x10^3/uL (130-400)
[2019-05-24 06:45] VITALS: BP 112/65
[2019-05-24 07:00] VITALS: BP 133/67
[2019-05-24] MEDS: SENNA/DOCUSATE TABLET PO SCH (08:43)
[2019-05-24] MEDS: LISINOPRIL 20 MG TABLET PO SCH ×2 (08:43→21:04)
[2019-05-24] MEDS: PANTOPRAZOLE 40 MG IV IV SCH (08:44)
[2019-05-24 10:14] VITALS: BP 115/72
[2019-05-24] MEDS: QUETIAPINE 25MG TABLET PO SCH ×3 (10:33→21:03)
[2019-05-24 11:12] VITALS: BP 96/58
[2019-05-24] MEDS: OXYcodone IR 5MG TABLET PO PRN (15:16)
[2019-05-24] MEDS: LABETALOL 5MG/ML, 20ML IVPush PRN ×2 (15:35→22:07)
[2019-05-24] MEDS ORDERED: DEXTROSE 70% IV SCH (17:00)
[2019-05-24] MEDS ORDERED: [UNRECOGNIZED DRUG - OTHER] IV SCH (17:00)
[2019-05-24] MEDS ORDERED: SMOF TPN IV SCH (17:00)
[2019-05-24] MEDS ORDERED: FAT EMUL IV SCH (17:00)
[2019-05-24] MEDS ORDERED: AMINO ACID 10% IV SCH (17:00)
[2019-05-25] MEDS: INSULIN REGULAR 100 UNITS/ML, 3ML VIAL SQ-INSULIN SCH ×4 (00:27→17:52)
[2019-05-25] MEDS: METOCLOPRAMIDE 5 MG/ML, 2ML IVPush SCH ×4 (00:27→17:52)
[2019-05-25 04:31] LABS: MEAN CORPUSCULAR HEMOGLOBIN 33.6 pg (27.5-34.5); MEAN CORPUSCULAR HGB CONC 33.1 g/dL (33.2-36.2); MEAN CORPUSCULAR VOLUME 101.7 fL (81-97); MEAN PLATELET VOLUME 10.4 fL (7.4-10.4); RED BLOOD COUNT 3.68 x10^6/uL (4.38-5.82); RED CELL DISTRIBUTION WIDTH 14.6 % (9.4-14.8)
[2019-05-25 04:32] LABS: INTERNATIONAL NORMALIZED RATIO 1.29 (0.93-1.1); PROTHROMBIN TIME 13.4 Seconds (9.6-11.5)
[2019-05-25 04:37] LABS: ANION GAP 6 mmol/L (5-15); CALCIUM 8.8 mg/dL (8.5-10.1); CHLORIDE 109 mmol/L (98-107); CREATININE 0.73 mg/dL (0.7-1.3); TRIGLYCERIDES 152 mg/dL (50-200)
[2019-05-25 04:46] LABS: PLATELET COUNT 16 x10^3/uL (130-400)
[2019-05-25 04:58] LABS: MD YES
[2019-05-25 04:59] LABS: BANDS%(MANUAL) 3 % (0-7); EOS% (MANUAL) 3 % (1-7); LYMPH#(MANUAL) 2.51 x10^3/uL (1-3.4); LYMPHS% (MANUAL) 19 % (22-44); METAMYELOCYTES# (MANUAL) 0.26 x10^3/uL (0-0); METAMYELOCYTES% (MANUAL) 2 % (0-1); MONOS#(MANUAL) 1.85 x10^3/uL (0.3-2.7); MONOS% (MANUAL) 14 % (2-9); MYELOCYTES# (MANUAL) 0.13 x10^3/uL (0-0); MYELOCYTES% (MANUAL) 1 % (0-0); SEG#(MANUAL) 7.66 x10^3/uL (1.8-6.8); SEGS% (MANUAL) 58 % (42-75)
[2019-05-25 05:00] LABS: <PLATELET ESTIMATE> DECREASED; <PLT MORPHOLOGY> NORMAL PLT MORPH
[2019-05-25] MEDS: LISINOPRIL 20 MG TABLET PO SCH (09:00)
[2019-05-25] MEDS: QUETIAPINE 25MG TABLET PO SCH ×2 (10:03→20:12)
[2019-05-25] MEDS: SENNA/DOCUSATE TABLET PO SCH (10:03)
[2019-05-25] MEDS: PANTOPRAZOLE 40 MG IV IV SCH (10:03)
[2019-05-25] MEDS ORDERED: DILTIAZEM 5 MG/ML, 5ML IVPush PRN (10:30)
[2019-05-25] MEDS ORDERED: QUETIAPINE 25MG TABLET ONE (11:31)
[2019-05-25 12:11] LABS: CULTURE INDICATED? YES; MICROSCOPIC INDICATED
[2019-05-25] MEDS ORDERED: QUETIAPINE 25MG TABLET PO ONE (14:00)
[2019-05-25] MEDS ORDERED: DEXTROSE 70% IV SCH (17:00)
[2019-05-25] MEDS ORDERED: [UNRECOGNIZED DRUG - OTHER] IV SCH (17:00)
[2019-05-25] MEDS ORDERED: FAT EMUL IV SCH (17:00)
[2019-05-25] MEDS ORDERED: AMINO ACID 10% IV SCH (17:00)
[2019-05-25] MEDS ORDERED: SMOF TPN IV SCH (17:00)
[2019-05-25] MEDS: METOPROLOL TARTRATE 25 MG TABLET PO SCH (17:52)
[2019-05-26] MEDS: INSULIN REGULAR 100 UNITS/ML, 3ML VIAL SQ-INSULIN SCH ×4 (00:11→18:15)
[2019-05-26] MEDS: METOCLOPRAMIDE 5 MG/ML, 2ML IVPush SCH ×2 (00:11→05:36)
[2019-05-26 05:06] LABS: MEAN CORPUSCULAR HGB CONC 32.9 g/dL (33.2-36.2); MEAN CORPUSCULAR VOLUME 100.6 fL (81-97); RED BLOOD COUNT 3.55 x10^6/uL (4.38-5.82); RED CELL DISTRIBUTION WIDTH 14.6 % (9.4-14.8)
[2019-05-26 05:09] LABS: ANION GAP 8 mmol/L (5-15); CALCIUM 9.1 mg/dL (8.5-10.1); CHLORIDE 109 mmol/L (98-107); CREATININE 0.78 mg/dL (0.7-1.3)
[2019-05-26 05:15] LABS: MEAN PLATELET VOLUME 10.1 fL (7.4-10.4); PLATELET COUNT 18 x10^3/uL (130-400)
[2019-05-26 05:27] LABS: INTERNATIONAL NORMALIZED RATIO 1.23 (0.93-1.1); PROTHROMBIN TIME 12.8 Seconds (9.6-11.5)
[2019-05-26] MEDS: METOPROLOL TARTRATE 25 MG TABLET PO SCH ×2 (05:36→18:15)
[2019-05-26 05:42] LABS: BASOPHILS # (AUTO) 0.12 x10^3/uL (0-0.1); BASOPHILS % (AUTO) 1 % (0-1); EOSINOPHILS # (AUTO) 0.27 x10^3/uL (0-0.4); EOSINOPHILS % (AUTO) 2 % (1-7); LYMPHOCYTES # (AUTO) 1.41 x10^3/uL (1-3.4); LYMPHOCYTES % (AUTO) 10 % (22-44); MD SCAN; MONOCYTES # (AUTO) 2.04 x10^3/uL (0.2-0.8); MONOCYTES % (AUTO) 14 % (2-9); NEUTROPHILS # (AUTO) 10.84 x10^3/uL (1.8-6.8); NEUTROPHILS % (AUTO) 74 % (42-75)
[2019-05-26] MEDS: SENNA/DOCUSATE TABLET PO SCH (09:26)
[2019-05-26] MEDS: QUETIAPINE 25MG TABLET PO SCH ×2 (09:27→20:57)
[2019-05-26] MEDS: PANTOPRAZOLE 40 MG IV IV SCH (09:27)
[2019-05-26] MEDS: CEFTAROLINE 600 MG in SODIUM CHLORIDE 0.9% 100 ML IV SCH ×2 (10:13→20:58)
[2019-05-26] MEDS ORDERED: DEXTROSE 70% IV SCH (17:00)
[2019-05-26] MEDS ORDERED: [UNRECOGNIZED DRUG - OTHER] IV SCH (17:00)
[2019-05-26] MEDS ORDERED: FAT EMUL IV SCH (17:00)
[2019-05-26] MEDS ORDERED: SMOF TPN IV SCH (17:00)
[2019-05-26] MEDS ORDERED: AMINO ACID 10% IV SCH (17:00)
[2019-05-27] MEDS: INSULIN REGULAR 100 UNITS/ML, 3ML VIAL SQ-INSULIN SCH ×5 (00:40→23:40)
[2019-05-27 05:50] LABS: ANION GAP 4 mmol/L (5-15); CALCIUM 8.8 mg/dL (8.5-10.1); CHLORIDE 113 mmol/L (98-107)
[2019-05-27 05:52] LABS: CREATININE 0.68 mg/dL (0.7-1.3)
[2019-05-27] MEDS: METOPROLOL TARTRATE 25 MG TABLET PO SCH ×2 (06:06→17:55)
[2019-05-27 08:20] LABS: MEAN CORPUSCULAR HEMOGLOBIN 33.5 pg (27.5-34.5); MEAN CORPUSCULAR HGB CONC 33.2 g/dL (33.2-36.2); MEAN CORPUSCULAR VOLUME 100.8 fL (81-97); MEAN PLATELET VOLUME 11.5 fL (7.4-10.4); RED BLOOD COUNT 3.33 x10^6/uL (4.38-5.82); RED CELL DISTRIBUTION WIDTH 14.7 % (9.4-14.8)
[2019-05-27 08:21] LABS: MD YES; PLATELET COUNT 23 x10^3/uL (130-400)
[2019-05-27 08:42] LABS: BAND#(MANUAL) 0.64 x10^3/uL; BANDS%(MANUAL) 5 % (0-7); EOS#(MANUAL) 0.13 x10^3/uL (0.0-0.4); EOS% (MANUAL) 1 % (1-7); LYMPH#(MANUAL) 0.77 x10^3/uL (1-3.4); LYMPHS% (MANUAL) 6 % (22-44); MONOS% (MANUAL) 7 % (2-9)
[2019-05-27 08:43] LABS: <PLATELET ESTIMATE> DECREASED; LARGE PLATELETS 1+; METAMYELOCYTES# (MANUAL) 0.13 x10^3/uL (0-0); METAMYELOCYTES% (MANUAL) 1 % (0-1); SEG#(MANUAL) 10.24 x10^3/uL (1.8-6.8); SEGS% (MANUAL) 80 % (42-75)
[2019-05-27] MEDS: PANTOPRAZOLE 40 MG IV IV SCH (08:44)
[2019-05-27] MEDS: SENNA/DOCUSATE TABLET PO SCH (08:44)
[2019-05-27] MEDS: QUETIAPINE 25MG TABLET PO SCH ×2 (08:44→19:41)
[2019-05-27] MEDS: CEFTAROLINE 600 MG in SODIUM CHLORIDE 0.9% 100 ML IV SCH ×2 (08:45→19:41)
[2019-05-27] MEDS ORDERED: [UNRECOGNIZED DRUG - OTHER] IV SCH (17:00)
[2019-05-27] MEDS ORDERED: AMINO ACID 10% IV SCH ×2 (17:00)
[2019-05-27] MEDS ORDERED: DEXTROSE 70% IV SCH ×2 (17:00)
[2019-05-27] MEDS ORDERED: SMOF TPN IV SCH ×2 (17:00)
[2019-05-27] MEDS ORDERED: FAT EMUL IV SCH ×2 (17:00)
[2019-05-27] MEDS ORDERED: [UNRECOGNIZED DRUG - OTHER] IV SCH (17:00)
[2019-05-27] MEDS: FILTER, DISP 1.2 MICRON FOR TPN/PVN IV PRN (18:29)
[2019-05-27] MEDS: INSULIN GLARGINE 100 UNITS/ML, PEN SQ-INSULIN SCH (19:42)
[2019-05-28 04:23] LABS: MEAN CORPUSCULAR HEMOGLOBIN 33.3 pg (27.5-34.5); MEAN CORPUSCULAR HGB CONC 32.8 g/dL (33.2-36.2); MEAN CORPUSCULAR VOLUME 101.4 fL (81-97); RED BLOOD COUNT 3.27 x10^6/uL (4.38-5.82); RED CELL DISTRIBUTION WIDTH 14.6 % (9.4-14.8)
[2019-05-28 04:34] LABS: ALANINE AMINOTRANSFERASE 102 U/L (12-78); ALBUMIN 2.1 g/dL (3.4-5.0); ANION GAP 6 mmol/L (5-15); CALCIUM 9.1 mg/dL (8.5-10.1); CHLORIDE 114 mmol/L (98-107); CREATININE 0.61 mg/dL (0.7-1.3)
[2019-05-28 04:39] LABS: ALKALINE PHOSPHATASE 66 U/L (45-117); BILIRUBIN,TOTAL 0.6 mg/dL (0.2-1.0); PREALBUMIN 7.2 mg/dL (20.0-40.0); TOTAL PROTEIN 5.8 g/dL (6.4-8.2); TRIGLYCERIDES 124 mg/dL (50-200)
[2019-05-28 04:43] LABS: MD YES
[2019-05-28 04:47] LABS: BAND#(MANUAL) 0.23 x10^3/uL; BANDS%(MANUAL) 2 % (0-7); EOS#(MANUAL) 0.23 x10^3/uL (0.0-0.4); EOS% (MANUAL) 2 % (1-7); LYMPH#(MANUAL) 1.17 x10^3/uL (1-3.4); LYMPHS% (MANUAL) 10 % (22-44); METAMYELOCYTES# (MANUAL) 0.23 x10^3/uL (0-0); METAMYELOCYTES% (MANUAL) 2 % (0-1); MONOS#(MANUAL) 0.47 x10^3/uL (0.3-2.7); MONOS% (MANUAL) 4 % (2-9); MYELOCYTES# (MANUAL) 0.12 x10^3/uL (0-0); MYELOCYTES% (MANUAL) 1 % (0-0); NRBC % (MANUAL) 1 % (0-1); REACTIVE LYMPHS # (MANUAL) 0.23 x10^3/uL (0-0); REACTIVE LYMPHS % (MANUAL) 2 % (0-0); SEG#(MANUAL) 9.01 x10^3/uL (1.8-6.8); SEGS% (MANUAL) 77 % (42-75)
[2019-05-28 04:49] LABS: <PLATELET ESTIMATE> DECREASED; LARGE PLATELETS 1+
[2019-05-28 04:50] LABS: PLATELET COUNT 43 x10^3/uL (130-400)
[2019-05-28] MEDS: METOPROLOL TARTRATE 25 MG TABLET PO SCH ×2 (05:22→18:12)
[2019-05-28] MEDS: INSULIN REGULAR 100 UNITS/ML, 3ML VIAL SQ-INSULIN SCH ×3 (05:22→18:13)
[2019-05-28] MEDS ORDERED: SMOF TPN IV SCH (09:30)
[2019-05-28] MEDS ORDERED: AMINO ACID 10% IV SCH (09:30)
[2019-05-28] MEDS ORDERED: DEXTROSE 70% IV SCH (09:30)
[2019-05-28] MEDS ORDERED: [UNRECOGNIZED DRUG - OTHER] IV SCH (09:30)
[2019-05-28] MEDS ORDERED: FAT EMUL IV SCH (09:30)
[2019-05-28] MEDS: PANTOPRAZOLE 40 MG IV IV SCH (09:44)
[2019-05-28] MEDS: SENNA/DOCUSATE TABLET PO SCH (09:44)
[2019-05-28] MEDS: QUETIAPINE 25MG TABLET PO SCH ×2 (09:45→22:24)
[2019-05-28] MEDS: INSULIN GLARGINE 100 UNITS/ML, PEN SQ-INSULIN SCH (09:45)
[2019-05-28] MEDS: CEFTAROLINE 600 MG in SODIUM CHLORIDE 0.9% 100 ML IV SCH ×2 (09:46→22:26)
[2019-05-28] MEDS: FONDAPARINUX 7.5 MG/0.6 ML SQ SCH (09:56)
[2019-05-28] MEDS ORDERED: HYDROmorphone 2 MG/ML, 1ML IVPush PRN (10:30)
[2019-05-28] MEDS ORDERED: MORPHINE SULFATE 4 MG/ML, 1ML IV PRN (10:30)
--- NOTE | 2019-05-28 13:13 | NUR ---
NPO with ongoing alternative means of nutrition and hydration -Single ice with staff only -When alert and at 90 degrees -Aggressive oral care Addendum: 05/28/19 at 1314 by KRUPA JOSEPH Amended: Links added.
[2019-05-28] MEDS: OXYcodone IR 5MG TABLET PO PRN (22:25)
[2019-05-29] MEDS: INSULIN GLARGINE 100 UNITS/ML, PEN SQ-INSULIN SCH ×2 (00:32→09:04)
[2019-05-29] MEDS: INSULIN REGULAR 100 UNITS/ML, 3ML VIAL SQ-INSULIN SCH ×4 (00:33→18:38)
[2019-05-29] MEDS: METOPROLOL TARTRATE 25 MG TABLET PO SCH ×2 (06:19→18:38)
[2019-05-29 07:41] LABS: ALANINE AMINOTRANSFERASE 95 U/L (12-78); ALBUMIN 2.2 g/dL (3.4-5.0); ANION GAP 4 mmol/L (5-15); CALCIUM 9.5 mg/dL (8.5-10.1); CHLORIDE 114 mmol/L (98-107); CREATININE 0.75 mg/dL (0.7-1.3)
[2019-05-29 07:49] LABS: MEAN CORPUSCULAR HEMOGLOBIN 33.2 pg (27.5-34.5); MEAN CORPUSCULAR HGB CONC 33.5 g/dL (33.2-36.2); MEAN CORPUSCULAR VOLUME 99.1 fL (81-97); MEAN PLATELET VOLUME 12.1 fL (7.4-10.4); PLATELET COUNT 52 x10^3/uL (130-400); RED BLOOD COUNT 3.28 x10^6/uL (4.38-5.82); RED CELL DISTRIBUTION WIDTH 14.7 % (9.4-14.8)
[2019-05-29 08:06] LABS: MD YES
[2019-05-29 08:08] LABS: ALKALINE PHOSPHATASE 74 U/L (45-117); BAND#(MANUAL) 0.45 x10^3/uL; BANDS%(MANUAL) 4 % (0-7); BILIRUBIN,TOTAL 0.6 mg/dL (0.2-1.0); EOS#(MANUAL) 0.57 x10^3/uL (0.0-0.4); EOS% (MANUAL) 5 % (1-7); LYMPH#(MANUAL) 1.24 x10^3/uL (1-3.4); LYMPHS% (MANUAL) 11 % (22-44); METAMYELOCYTES# (MANUAL) 0.11 x10^3/uL (0-0); METAMYELOCYTES% (MANUAL) 1 % (0-1); MONOS% (MANUAL) 8 % (2-9); SEG#(MANUAL) 8.02 x10^3/uL (1.8-6.8); SEGS% (MANUAL) 71 % (42-75); TOTAL PROTEIN 5.7 g/dL (6.4-8.2)
[2019-05-29 08:09] LABS: <PLATELET ESTIMATE> DECREASED; LARGE PLATELETS 1+; POLYCHROMASIA 1+
[2019-05-29] MEDS: THIAMINE 100MG TABLET NG SCH (09:02)
[2019-05-29] MEDS: QUETIAPINE 25MG TABLET PO SCH ×2 (09:02→21:35)
[2019-05-29] MEDS: SENNA/DOCUSATE TABLET PO SCH (09:02)
[2019-05-29] MEDS: FONDAPARINUX 7.5 MG/0.6 ML SQ SCH (09:02)
[2019-05-29] MEDS: FOLIC ACID 1 MG TABLET NG SCH (09:02)
[2019-05-29] MEDS: CEFTAROLINE 600 MG in SODIUM CHLORIDE 0.9% 100 ML IV SCH ×2 (09:03→21:34)
[2019-05-29] MEDS: MULTIVIT.W/IRON, MINERALS ORAL SOL NG SCH (09:03)
[2019-05-29] MEDS: HALOPERIDOL 5 MG/ML IV PRN ×3 (09:08→21:34)
[2019-05-29] MEDS: ALBUTEROL SULFATE 2.5 MG/3 ML NPPB SCH ×3 (11:30→18:21)
[2019-05-30] MEDS: INSULIN REGULAR 100 UNITS/ML, 3ML VIAL SQ-INSULIN SCH ×5 (00:43→22:44)
[2019-05-30] MEDS: INSULIN GLARGINE 100 UNITS/ML, PEN SQ-INSULIN SCH ×3 (00:44→21:00)
[2019-05-30] MEDS: HALOPERIDOL 5 MG/ML IV PRN (01:28)
[2019-05-30 04:45] LABS: MEAN CORPUSCULAR HEMOGLOBIN 32.9 pg (27.5-34.5); MEAN CORPUSCULAR VOLUME 99.6 fL (81-97); RED BLOOD COUNT 3.31 x10^6/uL (4.38-5.82); RED CELL DISTRIBUTION WIDTH 14.8 % (9.4-14.8)
[2019-05-30 04:47] LABS: ANION GAP 2 mmol/L (5-15); CALCIUM 9.5 mg/dL (8.5-10.1); CHLORIDE 108 mmol/L (98-107)
[2019-05-30 04:49] LABS: CREATININE 0.74 mg/dL (0.7-1.3)
[2019-05-30 05:41] LABS: MEAN PLATELET VOLUME 11.6 fL (7.4-10.4); PLATELET COUNT 71 x10^3/uL (130-400)
[2019-05-30 05:45] LABS: MD YES
[2019-05-30 05:46] LABS: BANDS%(MANUAL) 10 % (0-7); EOS#(MANUAL) 0.36 x10^3/uL (0.0-0.4); EOS% (MANUAL) 3 % (1-7); LYMPH#(MANUAL) 1.08 x10^3/uL (1-3.4); LYMPHS% (MANUAL) 9 % (22-44); MONOS#(MANUAL) 0.36 x10^3/uL (0.3-2.7); MONOS% (MANUAL) 3 % (2-9); MYELOCYTES# (MANUAL) 0.12 x10^3/uL (0-0); MYELOCYTES% (MANUAL) 1 % (0-0); SEG#(MANUAL) 8.88 x10^3/uL (1.8-6.8); SEGS% (MANUAL) 74 % (42-75)
[2019-05-30 05:47] LABS: HYPOCHROMIA 1+
[2019-05-30 05:48] LABS: <PLATELET ESTIMATE> DECREASED; LARGE PLATELETS 1+; POLYCHROMASIA 1+
[2019-05-30] MEDS: METOPROLOL TARTRATE 25 MG TABLET PO SCH ×2 (06:26→17:13)
[2019-05-30] MEDS: ALBUTEROL SULFATE 2.5 MG/3 ML NPPB SCH ×4 (07:00→19:01)
[2019-05-30] MEDS: FOLIC ACID 1 MG TABLET NG SCH (08:42)
[2019-05-30] MEDS: SENNA/DOCUSATE TABLET PO SCH (08:42)
[2019-05-30] MEDS: THIAMINE 100MG TABLET NG SCH (08:42)
[2019-05-30] MEDS: QUETIAPINE 25MG TABLET PO SCH ×2 (08:42→20:33)
[2019-05-30] MEDS: CEFTAROLINE 600 MG in SODIUM CHLORIDE 0.9% 100 ML IV SCH ×2 (08:55→20:32)
[2019-05-30] MEDS: MULTIVIT.W/IRON, MINERALS ORAL SOL NG SCH (08:55)
[2019-05-30] MEDS: FONDAPARINUX 7.5 MG/0.6 ML SQ SCH (08:56)
[2019-05-30] MEDS ORDERED: MAGNESIUM SULFATE PMX 2GM/50ML 50 ML IV ONE (09:30)
[2019-05-30] MEDS ORDERED: MAGNESIUM HYDROXIDE 8%, 30ML UDC PO PRN (09:30)
[2019-05-30] MEDS ORDERED: HALOPERIDOL 5 MG/ML IV PRN (09:30)
[2019-05-30] MEDS: OXYcodone IR 5MG TABLET PO PRN (23:49)
[2019-05-31 04:49] LABS: MEAN CORPUSCULAR HEMOGLOBIN 33.2 pg (27.5-34.5); MEAN CORPUSCULAR HGB CONC 32.9 g/dL (33.2-36.2); MEAN CORPUSCULAR VOLUME 100.9 fL (81-97); MEAN PLATELET VOLUME 10.8 fL (7.4-10.4); PLATELET COUNT 72 x10^3/uL (130-400); RED BLOOD COUNT 3.25 x10^6/uL (4.38-5.82); RED CELL DISTRIBUTION WIDTH 14.3 % (9.4-14.8)
[2019-05-31 04:51] LABS: ANION GAP 4 mmol/L (5-15); CALCIUM 9.3 mg/dL (8.5-10.1); CHLORIDE 107 mmol/L (98-107); CREATININE 0.73 mg/dL (0.7-1.3); TRIGLYCERIDES 114 mg/dL (50-200)
[2019-05-31 05:16] VITALS: BP 148/72
[2019-05-31] MEDS: INSULIN REGULAR 100 UNITS/ML, 3ML VIAL SQ-INSULIN SCH ×3 (05:29→17:00)
[2019-05-31] MEDS: METOPROLOL TARTRATE 25 MG TABLET PO SCH ×2 (05:30→18:00)
[2019-05-31 05:42] LABS: MD YES
[2019-05-31 05:44] LABS: BAND#(MANUAL) 0.35 x10^3/uL; BANDS%(MANUAL) 3 % (0-7); EOS#(MANUAL) 0.46 x10^3/uL (0.0-0.4); EOS% (MANUAL) 4 % (1-7); LYMPH#(MANUAL) 1.97 x10^3/uL (1-3.4); LYMPHS% (MANUAL) 17 % (22-44); MONOS#(MANUAL) 0.46 x10^3/uL (0.3-2.7); MONOS% (MANUAL) 4 % (2-9); SEG#(MANUAL) 8.35 x10^3/uL (1.8-6.8); SEGS% (MANUAL) 72 % (42-75)
[2019-05-31 05:45] LABS: <PLATELET ESTIMATE> DECREASED; HYPOCHROMIA 1+; LARGE PLATELETS 1+; POLYCHROMASIA 1+
[2019-05-31] MEDS: ALBUTEROL SULFATE 2.5 MG/3 ML NPPB SCH (07:00)
[2019-05-31] MEDS: MULTIVIT.W/IRON, MINERALS ORAL SOL NG SCH (07:11)
[2019-05-31] MEDS: QUETIAPINE 25MG TABLET PO SCH ×2 (07:11→21:17)
[2019-05-31] MEDS: FOLIC ACID 1 MG TABLET NG SCH (07:11)
[2019-05-31] MEDS: SENNA/DOCUSATE TABLET PO SCH (07:11)
[2019-05-31] MEDS: FONDAPARINUX 7.5 MG/0.6 ML SQ SCH (07:12)
[2019-05-31] MEDS: INSULIN GLARGINE 100 UNITS/ML, PEN SQ-INSULIN SCH ×2 (07:12→21:24)
[2019-05-31] MEDS ORDERED: ALBUTEROL SULFATE 2.5 MG/3 ML NPPB PRN (07:30)
[2019-05-31] MEDS: CEFTAROLINE 600 MG in SODIUM CHLORIDE 0.9% 100 ML IV SCH (07:56)
[2019-05-31] MEDS: THIAMINE 100MG TABLET NG SCH (09:00)
[2019-05-31] MEDS ORDERED: OXYcodone IR 5MG TABLET PO PRN (11:00)
[2019-05-31 13:10] VITALS: BP_SYST 112; BP_SYST 117; BP_SYST 174; BP_DIAS 54; BP_DIAS 70; BP_DIAS 89
[2019-05-31 18:38] VITALS: BP 128/95
[2019-05-31] MEDS: CEFTRIAXONE PMX 2GM/50ML 50 ML IVPB SCH (21:17)
[2019-05-31 21:50] VITALS: BP 126/76
[2019-06-01] MEDS: INSULIN REGULAR 100 UNITS/ML, 3ML VIAL SQ-INSULIN SCH ×5 (00:15→23:55)
[2019-06-01 02:00] VITALS: BP 129/69
[2019-06-01 05:55] LABS: ANION GAP 7 mmol/L (5-15); CALCIUM 9.7 mg/dL (8.5-10.1); CHLORIDE 104 mmol/L (98-107)
[2019-06-01 05:56] LABS: CREATININE 0.78 mg/dL (0.7-1.3)
[2019-06-01 06:19] VITALS: BP 156/77
[2019-06-01] MEDS: METOPROLOL TARTRATE 25 MG TABLET PO SCH ×2 (06:21→18:00)
[2019-06-01 06:39] LABS: MEAN CORPUSCULAR HEMOGLOBIN 33.2 pg (27.5-34.5); MEAN CORPUSCULAR HGB CONC 32.9 g/dL (33.2-36.2); MEAN CORPUSCULAR VOLUME 100.6 fL (81-97); MEAN PLATELET VOLUME 10.9 fL (7.4-10.4); PLATELET COUNT 94 x10^3/uL (130-400); RED BLOOD COUNT 3.37 x10^6/uL (4.38-5.82); RED CELL DISTRIBUTION WIDTH 14.5 % (9.4-14.8)
[2019-06-01 07:19] LABS: BASOPHILS # (AUTO) 0.03 x10^3/uL (0-0.1); BASOPHILS % (AUTO) 0 % (0-1); EOSINOPHILS # (AUTO) 0.45 x10^3/uL (0-0.4); EOSINOPHILS % (AUTO) 4 % (1-7); LYMPHOCYTES # (AUTO) 1.75 x10^3/uL (1-3.4); LYMPHOCYTES % (AUTO) 15 % (22-44); MD SCAN; MONOCYTES # (AUTO) 0.74 x10^3/uL (0.2-0.8); MONOCYTES % (AUTO) 7 % (2-9); NEUTROPHILS # (AUTO) 8.53 x10^3/uL (1.8-6.8); NEUTROPHILS % (AUTO) 74 % (42-75)
[2019-06-01 07:50] VITALS: BP 136/72
[2019-06-01] MEDS: INSULIN GLARGINE 100 UNITS/ML, PEN SQ-INSULIN SCH ×2 (08:07→21:00)
[2019-06-01] MEDS: FOLIC ACID 1 MG TABLET NG SCH (08:08)
[2019-06-01] MEDS: FONDAPARINUX 7.5 MG/0.6 ML SQ SCH (08:08)
[2019-06-01] MEDS: QUETIAPINE 25MG TABLET PO SCH ×2 (08:08→21:00)
[2019-06-01] MEDS: SENNA/DOCUSATE TABLET PO SCH (08:08)
[2019-06-01] MEDS: THIAMINE 100MG TABLET NG SCH (08:08)
[2019-06-01] MEDS: MULTIVIT.W/IRON, MINERALS ORAL SOL NG SCH (08:08)
[2019-06-01] MEDS: CEFTRIAXONE PMX 2GM/50ML 50 ML IVPB SCH (21:00)
[2019-06-02 00:58] VITALS: BP 139/86
[2019-06-02] MEDS: INSULIN REGULAR 100 UNITS/ML, 3ML VIAL SQ-INSULIN SCH ×3 (05:06→18:50)
[2019-06-02] MEDS: METOPROLOL TARTRATE 25 MG TABLET PO SCH ×2 (05:08→18:43)
[2019-06-02 06:10] LABS: BASOPHILS # (AUTO) 0.05 x10^3/uL (0-0.1); BASOPHILS % (AUTO) 1 % (0-1); EOSINOPHILS # (AUTO) 0.54 x10^3/uL (0-0.4); EOSINOPHILS % (AUTO) 5 % (1-7); LYMPHOCYTES # (AUTO) 1.55 x10^3/uL (1-3.4); LYMPHOCYTES % (AUTO) 14 % (22-44); MD NO; MEAN CORPUSCULAR VOLUME 100.1 fL (81-97); MEAN PLATELET VOLUME 10.6 fL (7.4-10.4); MONOCYTES # (AUTO) 0.79 x10^3/uL (0.2-0.8); MONOCYTES % (AUTO) 7 % (2-9); NEUTROPHILS # (AUTO) 7.88 x10^3/uL (1.8-6.8); NEUTROPHILS % (AUTO) 73 % (42-75); PLATELET COUNT 101 x10^3/uL (130-400); RED BLOOD COUNT 3.35 x10^6/uL (4.38-5.82); RED CELL DISTRIBUTION WIDTH 14.8 % (9.4-14.8)
[2019-06-02 06:16] LABS: ANION GAP 5 mmol/L (5-15); CALCIUM 9.6 mg/dL (8.5-10.1); CHLORIDE 103 mmol/L (98-107); CREATININE 0.76 mg/dL (0.7-1.3)
[2019-06-02 06:58] VITALS: BP 164/87
[2019-06-02] MEDS: FOLIC ACID 1 MG TABLET NG SCH (11:40)
[2019-06-02] MEDS: MULTIVIT.W/IRON, MINERALS ORAL SOL NG SCH (11:40)
[2019-06-02] MEDS: THIAMINE 100MG TABLET NG SCH (11:42)
[2019-06-02] MEDS: QUETIAPINE 25MG TABLET PO SCH ×2 (11:42→20:54)
[2019-06-02] MEDS: SENNA/DOCUSATE TABLET PO SCH (11:42)
[2019-06-02] MEDS: FONDAPARINUX 7.5 MG/0.6 ML SQ SCH (11:42)
[2019-06-02] MEDS: INSULIN GLARGINE 100 UNITS/ML, PEN SQ-INSULIN SCH ×2 (11:43→20:55)
[2019-06-02 13:22] VITALS: BP 153/95
[2019-06-02 18:36] VITALS: BP 125/76
[2019-06-02] MEDS: CEFTRIAXONE PMX 2GM/50ML 50 ML IVPB SCH (20:54)
[2019-06-03] MEDS: INSULIN REGULAR 100 UNITS/ML, 3ML VIAL SQ-INSULIN SCH ×5 (00:08→23:00)
[2019-06-03 00:37] VITALS: BP 161/81
[2019-06-03] MEDS ORDERED: LORazepam 2 MG/ML, 1ML IVPush ONE (01:00)
[2019-06-03 05:06] LABS: BASOPHILS # (AUTO) 0.03 x10^3/uL (0-0.1); BASOPHILS % (AUTO) 0 % (0-1); EOSINOPHILS # (AUTO) 0.52 x10^3/uL (0-0.4); EOSINOPHILS % (AUTO) 4 % (1-7); LYMPHOCYTES # (AUTO) 1.71 x10^3/uL (1-3.4); LYMPHOCYTES % (AUTO) 14 % (22-44); MD NO; MEAN CORPUSCULAR HEMOGLOBIN 32.7 pg (27.5-34.5); MEAN CORPUSCULAR VOLUME 99.1 fL (81-97); MEAN PLATELET VOLUME 10.5 fL (7.4-10.4); MONOCYTES # (AUTO) 1.04 x10^3/uL (0.2-0.8); MONOCYTES % (AUTO) 9 % (2-9); NEUTROPHILS # (AUTO) 8.54 x10^3/uL (1.8-6.8); NEUTROPHILS % (AUTO) 72 % (42-75); PLATELET COUNT 128 x10^3/uL (130-400); RED BLOOD COUNT 3.46 x10^6/uL (4.38-5.82); RED CELL DISTRIBUTION WIDTH 14.4 % (9.4-14.8)
[2019-06-03 05:12] LABS: ANION GAP 6 mmol/L (5-15); CHLORIDE 101 mmol/L (98-107)
[2019-06-03 05:14] LABS: CALCIUM 9.8 mg/dL (8.5-10.1); CREATININE 0.67 mg/dL (0.7-1.3); TRIGLYCERIDES 77 mg/dL (50-200)
[2019-06-03] MEDS: METOPROLOL TARTRATE 25 MG TABLET PO SCH ×2 (05:31→17:23)
[2019-06-03 07:07] VITALS: BP 123/77
[2019-06-03] MEDS: INSULIN GLARGINE 100 UNITS/ML, PEN SQ-INSULIN SCH ×2 (09:09→21:58)
[2019-06-03] MEDS: MULTIVIT.W/IRON, MINERALS ORAL SOL NG SCH (09:10)
[2019-06-03] MEDS: FONDAPARINUX 7.5 MG/0.6 ML SQ SCH (09:10)
[2019-06-03] MEDS: FOLIC ACID 1 MG TABLET NG SCH (09:10)
[2019-06-03] MEDS: THIAMINE 100MG TABLET NG SCH (09:10)
[2019-06-03] MEDS: QUETIAPINE 25MG TABLET PO SCH ×2 (09:10→23:07)
[2019-06-03] MEDS: SENNA/DOCUSATE TABLET PO SCH (09:11)
[2019-06-03] MEDS: DIVALPROEX 125 MG CAP.SPRINK PO SCH ×2 (11:31→23:07)
[2019-06-03 12:08] VITALS: BP 120/72
[2019-06-03] MEDS: CEFTRIAXONE PMX 2GM/50ML 50 ML IVPB SCH (21:57)
[2019-06-04 00:12] VITALS: BP 110/71
[2019-06-04] MEDS: INSULIN REGULAR 100 UNITS/ML, 3ML VIAL SQ-INSULIN SCH ×4 (05:00→23:00)
[2019-06-04] MEDS: METOPROLOL TARTRATE 25 MG TABLET PO SCH ×2 (05:51→17:32)
[2019-06-04 05:55] LABS: ANION GAP 5 mmol/L (5-15); CALCIUM 9.4 mg/dL (8.5-10.1); CHLORIDE 101 mmol/L (98-107); CREATININE 0.65 mg/dL (0.7-1.3)
[2019-06-04 06:55] VITALS: BP 111/69
[2019-06-04 08:33] LABS: BASOPHILS # (AUTO) 0.05 x10^3/uL (0-0.1); BASOPHILS % (AUTO) 0 % (0-1); EOSINOPHILS # (AUTO) 0.54 x10^3/uL (0-0.4); EOSINOPHILS % (AUTO) 4 % (1-7); LYMPHOCYTES # (AUTO) 1.81 x10^3/uL (1-3.4); LYMPHOCYTES % (AUTO) 15 % (22-44); MD NO; MEAN CORPUSCULAR HEMOGLOBIN 32.2 pg (27.5-34.5); MEAN CORPUSCULAR HGB CONC 32.8 g/dL (33.2-36.2); MEAN PLATELET VOLUME 10.4 fL (7.4-10.4); MONOCYTES # (AUTO) 0.99 x10^3/uL (0.2-0.8); MONOCYTES % (AUTO) 8 % (2-9); NEUTROPHILS # (AUTO) 8.84 x10^3/uL (1.8-6.8); NEUTROPHILS % (AUTO) 72 % (42-75); PLATELET COUNT 136 x10^3/uL (130-400); RED BLOOD COUNT 3.42 x10^6/uL (4.38-5.82); RED CELL DISTRIBUTION WIDTH 14.1 % (9.4-14.8)
[2019-06-04] MEDS: INSULIN GLARGINE 100 UNITS/ML, PEN SQ-INSULIN SCH ×2 (08:42→21:31)
[2019-06-04] MEDS: MULTIVIT.W/IRON, MINERALS ORAL SOL NG SCH (08:42)
[2019-06-04] MEDS: FONDAPARINUX 7.5 MG/0.6 ML SQ SCH (08:42)
[2019-06-04] MEDS: QUETIAPINE 25MG TABLET PO SCH ×2 (08:43→21:30)
[2019-06-04] MEDS: FOLIC ACID 1 MG TABLET NG SCH (08:43)
[2019-06-04] MEDS: SENNA/DOCUSATE TABLET PO SCH (08:43)
[2019-06-04] MEDS: THIAMINE 100MG TABLET NG SCH (08:43)
[2019-06-04] MEDS: DIVALPROEX 125 MG CAP.SPRINK PO SCH ×2 (08:46→21:30)
[2019-06-04 12:13] VITALS: BP 118/76
[2019-06-04 18:50] VITALS: BP 114/74
[2019-06-04] MEDS: CEFTRIAXONE PMX 2GM/50ML 50 ML IVPB SCH (21:31)
[2019-06-05] MEDS ORDERED: ZIPRASIDONE 20 MG INJ IM ONE
[2019-06-05] MEDS: INSULIN REGULAR 100 UNITS/ML, 3ML VIAL SQ-INSULIN SCH ×4 (05:00→23:00)
[2019-06-05] MEDS: METOPROLOL TARTRATE 25 MG TABLET PO SCH ×2 (05:46→18:21)
[2019-06-05 06:53] VITALS: BP 105/67
[2019-06-05] MEDS: FOLIC ACID 1 MG TABLET NG SCH (09:16)
[2019-06-05] MEDS: QUETIAPINE 25MG TABLET PO SCH ×2 (09:17→22:18)
[2019-06-05] MEDS: SENNA/DOCUSATE TABLET PO SCH (09:17)
[2019-06-05] MEDS: DIVALPROEX 125 MG CAP.SPRINK PO SCH ×2 (09:17→22:18)
[2019-06-05] MEDS: THIAMINE 100MG TABLET NG SCH (09:17)
[2019-06-05] MEDS: MULTIVIT.W/IRON, MINERALS ORAL SOL NG SCH (09:18)
[2019-06-05] MEDS: FONDAPARINUX 7.5 MG/0.6 ML SQ SCH ×2 (09:19→11:27)
[2019-06-05] MEDS: INSULIN GLARGINE 100 UNITS/ML, PEN SQ-INSULIN SCH ×2 (09:20→22:18)
[2019-06-05 12:57] VITALS: BP 133/57
[2019-06-05] MEDS: OXYcodone 5 MG/5 ML ORAL.SOL UDC PO PRN ×2 (16:51→22:17)
[2019-06-05 21:13] VITALS: BP 121/70
[2019-06-05] MEDS: CEFTRIAXONE PMX 2GM/50ML 50 ML IVPB SCH (22:18)
[2019-06-06 01:18] VITALS: BP 135/77
[2019-06-06] MEDS: INSULIN REGULAR 100 UNITS/ML, 3ML VIAL SQ-INSULIN SCH ×3 (05:00→17:00)
[2019-06-06 05:44] LABS: BASOPHILS # (AUTO) 0.04 x10^3/uL (0-0.1); BASOPHILS % (AUTO) 0 % (0-1); EOSINOPHILS % (AUTO) 5 % (1-7); LYMPHOCYTES # (AUTO) 1.95 x10^3/uL (1-3.4); LYMPHOCYTES % (AUTO) 18 % (22-44); MD NO; MEAN CORPUSCULAR HEMOGLOBIN 32.6 pg (27.5-34.5); MEAN CORPUSCULAR HGB CONC 32.6 g/dL (33.2-36.2); MEAN CORPUSCULAR VOLUME 99.9 fL (81-97); MEAN PLATELET VOLUME 10.8 fL (7.4-10.4); MONOCYTES # (AUTO) 0.91 x10^3/uL (0.2-0.8); MONOCYTES % (AUTO) 9 % (2-9); NEUTROPHILS # (AUTO) 7.31 x10^3/uL (1.8-6.8); NEUTROPHILS % (AUTO) 68 % (42-75); PLATELET COUNT 186 x10^3/uL (130-400); RED BLOOD COUNT 3.42 x10^6/uL (4.38-5.82); RED CELL DISTRIBUTION WIDTH 14.2 % (9.4-14.8)
[2019-06-06] MEDS: METOPROLOL TARTRATE 25 MG TABLET PO SCH ×2 (05:59→18:11)
[2019-06-06 08:12] VITALS: BP 117/73
[2019-06-06] MEDS: QUETIAPINE 25MG TABLET PO SCH ×2 (09:00→21:32)
[2019-06-06] MEDS: FONDAPARINUX 7.5 MG/0.6 ML SQ SCH (09:00)
[2019-06-06] MEDS: FOLIC ACID 1 MG TABLET NG SCH (09:00)
[2019-06-06] MEDS: THIAMINE 100MG TABLET NG SCH (09:00)
[2019-06-06] MEDS: SENNA/DOCUSATE TABLET PO SCH (09:00)
[2019-06-06] MEDS: MULTIVIT.W/IRON, MINERALS ORAL SOL NG SCH (09:00)
[2019-06-06] MEDS: DIVALPROEX 125 MG CAP.SPRINK PO SCH ×2 (10:00→21:32)
[2019-06-06] MEDS: INSULIN GLARGINE 100 UNITS/ML, PEN SQ-INSULIN SCH ×2 (10:01→21:33)
[2019-06-06] MEDS ORDERED: PROPOFOL 10 MG/ML, 20ML ONE (12:37)
[2019-06-06 14:43] VITALS: BP 110/70
[2019-06-06] MEDS: OXYcodone 5 MG/5 ML ORAL.SOL UDC PO PRN ×2 (17:16→21:32)
[2019-06-06 20:05] VITALS: BP 120/76
[2019-06-06] MEDS: CEFTRIAXONE PMX 2GM/50ML 50 ML IVPB SCH (22:06)
[2019-06-07 01:47] VITALS: BP 133/84
[2019-06-07] MEDS: INSULIN REGULAR 100 UNITS/ML, 3ML VIAL SQ-INSULIN SCH ×4 (02:27→20:00)
[2019-06-07] MEDS: OXYcodone 5 MG/5 ML ORAL.SOL UDC PO PRN ×2 (04:51→20:55)
[2019-06-07] MEDS: METOPROLOL TARTRATE 25 MG TABLET PO SCH ×2 (05:56→18:34)
[2019-06-07 08:43] VITALS: BP 118/72
[2019-06-07] MEDS: SENNA/DOCUSATE TABLET PO SCH (09:00)
[2019-06-07] MEDS: QUETIAPINE 25MG TABLET PO SCH ×2 (09:25→20:34)
[2019-06-07] MEDS: OMEPRAZOLE/SOD. BICARB. PACKET PO SCH (09:25)
[2019-06-07] MEDS: FONDAPARINUX 7.5 MG/0.6 ML SQ SCH (09:25)
[2019-06-07] MEDS: DIVALPROEX 125 MG CAP.SPRINK PO SCH ×2 (09:26→20:55)
[2019-06-07] MEDS: FOLIC ACID 1 MG TABLET NG SCH (09:26)
[2019-06-07] MEDS: THIAMINE 100MG TABLET NG SCH (09:28)
[2019-06-07] MEDS: MULTIVIT.W/IRON, MINERALS ORAL SOL NG SCH (09:29)
[2019-06-07] MEDS: INSULIN GLARGINE 100 UNITS/ML, PEN SQ-INSULIN SCH ×2 (09:29→20:54)
[2019-06-07] MEDS: SENNOSIDES 8.8 MG/5 ML ORAL SOL PO SCH (09:59)
[2019-06-07] MEDS: DOCUSATE 50 MG/5 ML, 10ML UDC PO SCH (09:59)
[2019-06-07 13:49] VITALS: BP 105/74
[2019-06-07] MEDS: hydrOXyzine 10 MG/5 ML ORAL SOL PO SCH ×2 (17:03→20:34)
[2019-06-07] MEDS: DIPHENHYDRAMINE/ZINC CRM 2%, 30GM TP PRN ×2 (18:32→20:35)
[2019-06-07 19:17] VITALS: BP 128/78
[2019-06-07] MEDS: CEFTRIAXONE PMX 2GM/50ML 50 ML IVPB SCH ×2 (20:54→22:30)
[2019-06-08 01:17] VITALS: BP 110/71
[2019-06-08] MEDS: INSULIN REGULAR 100 UNITS/ML, 3ML VIAL SQ-INSULIN SCH ×4 (02:00→20:09)
[2019-06-08 04:59] VITALS: BP 116/63
[2019-06-08 05:01] LABS: BASOPHILS # (AUTO) 0.05 x10^3/uL (0-0.1); BASOPHILS % (AUTO) 1 % (0-1); EOSINOPHILS # (AUTO) 0.53 x10^3/uL (0-0.4); EOSINOPHILS % (AUTO) 6 % (1-7); LYMPHOCYTES # (AUTO) 1.69 x10^3/uL (1-3.4); LYMPHOCYTES % (AUTO) 18 % (22-44); MD NO; MEAN CORPUSCULAR HGB CONC 32.7 g/dL (33.2-36.2); MEAN CORPUSCULAR VOLUME 97.9 fL (81-97); MEAN PLATELET VOLUME 10.8 fL (7.4-10.4); MONOCYTES # (AUTO) 0.95 x10^3/uL (0.2-0.8); MONOCYTES % (AUTO) 10 % (2-9); NEUTROPHILS # (AUTO) 6.25 x10^3/uL (1.8-6.8); NEUTROPHILS % (AUTO) 66 % (42-75); PLATELET COUNT 192 x10^3/uL (130-400); RED BLOOD COUNT 3.37 x10^6/uL (4.38-5.82); RED CELL DISTRIBUTION WIDTH 14.3 % (9.4-14.8)
[2019-06-08] MEDS: METOPROLOL TARTRATE 25 MG TABLET PO SCH ×2 (05:01→17:42)
[2019-06-08 08:06] VITALS: BP 113/65
[2019-06-08 08:27] LABS: ALANINE AMINOTRANSFERASE 24 U/L (12-78); ALBUMIN 2.3 g/dL (3.4-5.0); ANION GAP 5 mmol/L (5-15); CALCIUM 9.1 mg/dL (8.5-10.1); CHLORIDE 103 mmol/L (98-107); CREATININE 0.75 mg/dL (0.7-1.3)
[2019-06-08 08:30] LABS: ALKALINE PHOSPHATASE 59 U/L (45-117); BILIRUBIN,TOTAL 0.4 mg/dL (0.2-1.0); TOTAL PROTEIN 6.4 g/dL (6.4-8.2)
[2019-06-08] MEDS: hydrOXyzine 10 MG/5 ML ORAL SOL PO SCH ×3 (09:55→20:08)
[2019-06-08] MEDS: MULTIVIT.W/IRON, MINERALS ORAL SOL NG SCH (09:55)
[2019-06-08] MEDS: DOCUSATE 50 MG/5 ML, 10ML UDC PO SCH (09:56)
[2019-06-08] MEDS: INSULIN GLARGINE 100 UNITS/ML, PEN SQ-INSULIN SCH ×2 (09:56→20:08)
[2019-06-08] MEDS: SENNOSIDES 8.8 MG/5 ML ORAL SOL PO SCH (09:56)
[2019-06-08] MEDS: THIAMINE 100MG TABLET NG SCH (09:57)
[2019-06-08] MEDS: APIXABAN 5 MG TABLET PO SCH ×2 (09:57→19:59)
[2019-06-08] MEDS: QUETIAPINE 25MG TABLET PO SCH ×2 (09:57→19:59)
[2019-06-08] MEDS: DIVALPROEX 125 MG CAP.SPRINK PO SCH ×2 (09:57→20:11)
[2019-06-08] MEDS: FONDAPARINUX 7.5 MG/0.6 ML SQ SCH (09:57)
[2019-06-08] MEDS: OMEPRAZOLE/SOD. BICARB. PACKET PO SCH (09:58)
[2019-06-08 14:40] VITALS: BP 110/69
[2019-06-08 20:17] VITALS: BP 114/70
[2019-06-08] MEDS: OXYcodone 5 MG/5 ML ORAL.SOL UDC PO PRN (20:53)
[2019-06-09 01:01] VITALS: BP 123/70
[2019-06-09] MEDS: INSULIN REGULAR 100 UNITS/ML, 3ML VIAL SQ-INSULIN SCH ×4 (01:20→23:19)
[2019-06-09] MEDS: METOPROLOL TARTRATE 25 MG TABLET PO SCH ×2 (05:18→17:03)
[2019-06-09 07:03] VITALS: BP 111/70
[2019-06-09] MEDS: APIXABAN 5 MG TABLET PO SCH ×2 (10:31→23:13)
[2019-06-09] MEDS: THIAMINE 100MG TABLET NG SCH (10:31)
[2019-06-09] MEDS: DIVALPROEX 125 MG CAP.SPRINK PO SCH ×2 (10:32→23:13)
[2019-06-09] MEDS: QUETIAPINE 25MG TABLET PO SCH ×2 (10:32→23:11)
[2019-06-09] MEDS: SENNOSIDES 8.8 MG/5 ML ORAL SOL PO SCH (10:34)
[2019-06-09] MEDS: DOCUSATE 50 MG/5 ML, 10ML UDC PO SCH (10:34)
[2019-06-09] MEDS: MULTIVIT.W/IRON, MINERALS ORAL SOL NG SCH (10:37)
[2019-06-09] MEDS: INSULIN GLARGINE 100 UNITS/ML, PEN SQ-INSULIN SCH ×2 (10:37→23:12)
[2019-06-09] MEDS: hydrOXyzine 10 MG/5 ML ORAL SOL PO SCH ×3 (10:38→23:18)
[2019-06-09] MEDS: OMEPRAZOLE/SOD. BICARB. PACKET PO SCH (10:42)
[2019-06-09 15:55] VITALS: BP 115/66
[2019-06-09] MEDS: OXYcodone 5 MG/5 ML ORAL.SOL UDC PO PRN (17:10)
[2019-06-09 19:19] VITALS: BP 111/70
[2019-06-10 01:20] VITALS: BP 105/72
[2019-06-10] MEDS: INSULIN REGULAR 100 UNITS/ML, 3ML VIAL SQ-INSULIN SCH ×4 (02:00→20:00)
[2019-06-10 04:56] LABS: BASOPHILS # (AUTO) 0.08 x10^3/uL (0-0.1); BASOPHILS % (AUTO) 1 % (0-1); EOSINOPHILS # (AUTO) 0.62 x10^3/uL (0-0.4); EOSINOPHILS % (AUTO) 6 % (1-7); LYMPHOCYTES # (AUTO) 2.31 x10^3/uL (1-3.4); LYMPHOCYTES % (AUTO) 21 % (22-44); MD NO; MEAN CORPUSCULAR HGB CONC 32.7 g/dL (33.2-36.2); MEAN CORPUSCULAR VOLUME 97.9 fL (81-97); MEAN PLATELET VOLUME 11.3 fL (7.4-10.4); MONOCYTES # (AUTO) 0.99 x10^3/uL (0.2-0.8); MONOCYTES % (AUTO) 9 % (2-9); NEUTROPHILS # (AUTO) 6.79 x10^3/uL (1.8-6.8); NEUTROPHILS % (AUTO) 63 % (42-75); PLATELET COUNT 270 x10^3/uL (130-400); RED BLOOD COUNT 3.79 x10^6/uL (4.38-5.82); RED CELL DISTRIBUTION WIDTH 14.5 % (9.4-14.8)
[2019-06-10 05:11] LABS: ANION GAP 7 mmol/L (5-15); CALCIUM 9.2 mg/dL (8.5-10.1); CHLORIDE 102 mmol/L (98-107); CREATININE 0.73 mg/dL (0.7-1.3)
[2019-06-10] MEDS: METOPROLOL TARTRATE 25 MG TABLET PO SCH ×2 (05:16→18:02)
[2019-06-10 07:40] VITALS: BP 101/67
[2019-06-10] MEDS: SENNOSIDES 8.8 MG/5 ML ORAL SOL PO SCH (08:10)
[2019-06-10] MEDS: INSULIN GLARGINE 100 UNITS/ML, PEN SQ-INSULIN SCH ×2 (08:11→21:56)
[2019-06-10] MEDS: QUETIAPINE 25MG TABLET PO SCH ×2 (08:12→22:05)
[2019-06-10] MEDS: OMEPRAZOLE/SOD. BICARB. PACKET PO SCH (08:13)
[2019-06-10] MEDS: hydrOXyzine 10 MG/5 ML ORAL SOL PO SCH ×3 (08:14→22:06)
[2019-06-10] MEDS: THIAMINE 100MG TABLET NG SCH (08:16)
[2019-06-10] MEDS: MULTIVIT.W/IRON, MINERALS ORAL SOL NG SCH (08:18)
[2019-06-10] MEDS: DOCUSATE 50 MG/5 ML, 10ML UDC PO SCH (08:30)
[2019-06-10] MEDS: APIXABAN 5 MG TABLET PO SCH ×2 (08:49→22:00)
[2019-06-10] MEDS ORDERED: HALOPERIDOL 1 MG TABLET PEG ONE (11:30)
[2019-06-10] MEDS: DIVALPROEX 125 MG CAP.SPRINK PO SCH ×2 (11:51→22:07)
[2019-06-10] MEDS ORDERED: HALOPERIDOL 0.5 MG TABLET PEG ONE (12:00)
[2019-06-10 16:00] VITALS: BP 126/70
[2019-06-10 20:44] VITALS: BP 113/69
[2019-06-11 01:33] VITALS: BP 122/75
[2019-06-11] MEDS: INSULIN REGULAR 100 UNITS/ML, 3ML VIAL SQ-INSULIN SCH ×4 (02:22→20:00)
[2019-06-11 05:31] VITALS: BP 106/60
[2019-06-11] MEDS: METOPROLOL TARTRATE 25 MG TABLET PO SCH ×2 (05:37→17:54)
[2019-06-11 07:00] VITALS: BP 122/72
[2019-06-11] MEDS: MULTIVIT.W/IRON, MINERALS ORAL SOL NG SCH (09:11)
[2019-06-11] MEDS: hydrOXyzine 10 MG/5 ML ORAL SOL PO SCH ×3 (09:11→22:24)
[2019-06-11] MEDS: SENNOSIDES 8.8 MG/5 ML ORAL SOL PO SCH (09:12)
[2019-06-11] MEDS: DOCUSATE 50 MG/5 ML, 10ML UDC PO SCH (09:12)
[2019-06-11] MEDS: OMEPRAZOLE/SOD. BICARB. PACKET PO SCH (09:13)
[2019-06-11] MEDS: APIXABAN 5 MG TABLET PO SCH ×2 (09:13→22:25)
[2019-06-11] MEDS: QUETIAPINE 25MG TABLET PO SCH ×2 (09:15→22:25)
[2019-06-11] MEDS: DIVALPROEX 125 MG CAP.SPRINK PO SCH ×2 (09:15→22:25)
[2019-06-11] MEDS: INSULIN GLARGINE 100 UNITS/ML, PEN SQ-INSULIN SCH ×2 (09:15→22:26)
[2019-06-11] MEDS: THIAMINE 100MG TABLET NG SCH (09:15)
[2019-06-11] MEDS: OXYcodone 5 MG/5 ML ORAL.SOL UDC PO PRN ×2 (12:32→22:41)
[2019-06-11] MEDS ORDERED: APIX5TAB PO (14:34)
[2019-06-11] MEDS ORDERED: HYDR10SY15 PO (14:34)
[2019-06-11] MEDS ORDERED: DIVA125C2 PO (14:34)
[2019-06-11] MEDS ORDERED: QUET25TA7 PO (14:34)
[2019-06-11] MEDS ORDERED: THIA100T67 NG (14:34)
[2019-06-11] MEDS ORDERED: MULT9LIQ10 NG (14:34)
[2019-06-11] MEDS ORDERED: INSU100V5 SQ-INSULIN (14:34)
[2019-06-11] MEDS ORDERED: DIPH28.44 TP (14:34)
[2019-06-11] MEDS ORDERED: OMEP1PAC PO (14:34)
[2019-06-11] MEDS ORDERED: INSU100I13 SQ-INSULIN (14:34)
[2019-06-11] MEDS ORDERED: METO25TA35 PO (14:34)
[2019-06-11 14:47] VITALS: BP 126/75
[2019-06-11 19:27] VITALS: BP 124/69
[2019-06-12] VITALS (8 sets, daily range): BP systolic 90–129; BP diastolic 54–79
[2019-06-12] MEDS: INSULIN REGULAR 100 UNITS/ML, 3ML VIAL SQ-INSULIN SCH ×4 (01:17→20:00)
[2019-06-12 05:09] LABS: ANION GAP 7 mmol/L (5-15); BASOPHILS # (AUTO) 0.05 x10^3/uL (0-0.1); BASOPHILS % (AUTO) 0 % (0-1); CALCIUM 8.9 mg/dL (8.5-10.1); CHLORIDE 104 mmol/L (98-107); CREATININE 0.66 mg/dL (0.7-1.3); EOSINOPHILS % (AUTO) 6 % (1-7); LYMPHOCYTES # (AUTO) 2.02 x10^3/uL (1-3.4); LYMPHOCYTES % (AUTO) 18 % (22-44); MD NO; MEAN CORPUSCULAR HEMOGLOBIN 31.6 pg (27.5-34.5); MEAN CORPUSCULAR HGB CONC 32.5 g/dL (33.2-36.2); MEAN CORPUSCULAR VOLUME 97.1 fL (81-97); MEAN PLATELET VOLUME 10.5 fL (7.4-10.4); MONOCYTES % (AUTO) 9 % (2-9); NEUTROPHILS # (AUTO) 7.35 x10^3/uL (1.8-6.8); NEUTROPHILS % (AUTO) 66 % (42-75); PLATELET COUNT 196 x10^3/uL (130-400); RED BLOOD COUNT 3.37 x10^6/uL (4.38-5.82); RED CELL DISTRIBUTION WIDTH 14.9 % (9.4-14.8)
[2019-06-12] MEDS: METOPROLOL TARTRATE 25 MG TABLET PO SCH ×2 (05:53→16:47)
[2019-06-12] MEDS: DOCUSATE 50 MG/5 ML, 10ML UDC PO SCH (07:59)
[2019-06-12] MEDS: SENNOSIDES 8.8 MG/5 ML ORAL SOL PO SCH (07:59)
[2019-06-12] MEDS: hydrOXyzine 10 MG/5 ML ORAL SOL PO SCH ×3 (08:00→20:56)
[2019-06-12] MEDS: DIVALPROEX 125 MG CAP.SPRINK PO SCH ×2 (08:01→20:55)
[2019-06-12] MEDS: APIXABAN 5 MG TABLET PO SCH ×2 (08:02→20:55)
[2019-06-12] MEDS: THIAMINE 100MG TABLET NG SCH (08:02)
[2019-06-12] MEDS: QUETIAPINE 25MG TABLET PO SCH ×2 (08:03→20:53)
[2019-06-12] MEDS: OMEPRAZOLE/SOD. BICARB. PACKET PO SCH (09:04)
[2019-06-12] MEDS: MULTIVIT.W/IRON, MINERALS ORAL SOL NG SCH (09:04)
[2019-06-12] MEDS: OXYcodone 5 MG/5 ML ORAL.SOL UDC PO PRN (09:04)
[2019-06-12] MEDS: INSULIN GLARGINE 100 UNITS/ML, PEN SQ-INSULIN SCH ×2 (10:28→20:56)
[2019-06-12] MEDS ORDERED: SODIUM CHLORIDE 0.9%, 250ML IVBOLUS ONE (12:00)
[2019-06-12] MEDS: SODIUM CHLORIDE 0.9% 1,000 ML IV SCH (17:30)
[2019-06-13 01:06] VITALS: BP 110/70
[2019-06-13] MEDS: INSULIN REGULAR 100 UNITS/ML, 3ML VIAL SQ-INSULIN SCH ×4 (01:38→14:00)
[2019-06-13 05:36] VITALS: BP 132/78
[2019-06-13] MEDS: METOPROLOL TARTRATE 25 MG TABLET PO SCH ×2 (05:41→17:16)
[2019-06-13] MEDS: SODIUM CHLORIDE 0.9% 1,000 ML IV SCH (05:41)
[2019-06-13 06:11] LABS: BASOPHILS # (AUTO) 0.03 x10^3/uL (0-0.1); BASOPHILS % (AUTO) 0 % (0-1); EOSINOPHILS % (AUTO) 7 % (1-7); LYMPHOCYTES # (AUTO) 1.98 x10^3/uL (1-3.4); LYMPHOCYTES % (AUTO) 18 % (22-44); MD NO; MEAN CORPUSCULAR HEMOGLOBIN 31.6 pg (27.5-34.5); MEAN CORPUSCULAR HGB CONC 32.5 g/dL (33.2-36.2); MEAN CORPUSCULAR VOLUME 97.2 fL (81-97); MEAN PLATELET VOLUME 11.2 fL (7.4-10.4); MONOCYTES % (AUTO) 8 % (2-9); NEUTROPHILS # (AUTO) 7.15 x10^3/uL (1.8-6.8); NEUTROPHILS % (AUTO) 67 % (42-75); PLATELET COUNT 176 x10^3/uL (130-400); RED CELL DISTRIBUTION WIDTH 15.2 % (9.4-14.8)
[2019-06-13 06:24] LABS: ANION GAP 7 mmol/L (5-15); CALCIUM 8.7 mg/dL (8.5-10.1); CHLORIDE 105 mmol/L (98-107); CREATININE 0.64 mg/dL (0.7-1.3)
[2019-06-13 07:11] VITALS: BP 122/77
[2019-06-13] MEDS: SENNOSIDES 8.8 MG/5 ML ORAL SOL PO SCH (08:32)
[2019-06-13] MEDS: MULTIVIT.W/IRON, MINERALS ORAL SOL NG SCH (08:32)
[2019-06-13] MEDS: hydrOXyzine 10 MG/5 ML ORAL SOL PO SCH ×2 (08:32→16:36)
[2019-06-13] MEDS: DOCUSATE 50 MG/5 ML, 10ML UDC PO SCH (08:33)
[2019-06-13] MEDS: QUETIAPINE 25MG TABLET PO SCH (08:34)
[2019-06-13] MEDS: DIVALPROEX 125 MG CAP.SPRINK PO SCH (08:34)
[2019-06-13] MEDS: THIAMINE 100MG TABLET NG SCH (08:34)
[2019-06-13] MEDS: APIXABAN 5 MG TABLET PO SCH (08:34)
[2019-06-13] MEDS: OMEPRAZOLE/SOD. BICARB. PACKET PO SCH (09:00)
[2019-06-13] MEDS: INSULIN GLARGINE 100 UNITS/ML, PEN SQ-INSULIN SCH (09:04)
[2019-06-13 13:25] VITALS: BP 116/71
[2019-06-13] MEDS ORDERED: FLU VAC QS 19-20(4YR UP)CEL/PF 0.5 ML IM-VACC ONE (16:00)
[2019-06-15] MEDS ORDERED: APIXABAN 5 MG TABLET PO SCH (09:00)
== END 2019-06-13 20:45 | DRG 270 ==
LOC: ORIP 05:23 → CCU 11:51 → ICU 05-30 07:17 → CCU 05-30 17:42 → 4EST 05-31 10:57 → 3N 06-09 13:10
PROVIDERS: ADMIT Surgery; ATTEND Internal Medicine
PROC: 03HY32Z Insertion of Monitoring Device into Upper Artery, Percutaneous Approach (ICD-10-PCS; 2019-05-15)
PROC: 04V00DZ Restriction of Abdominal Aorta with Intraluminal Device, Open Approach (ICD-10-PCS; principal; 2019-05-15 07:30)
PROC: 0BH18EZ Insertion of Endotracheal Airway into Trachea, Via Natural or Artificial Opening Endoscopic (ICD-10-PCS; 2019-05-19)
PROC: 5A1935Z Respiratory Ventilation, Less than 24 Consecutive Hours (ICD-10-PCS; 2019-05-19)
PROC: 02HV33Z Insertion of Infusion Device into Superior Vena Cava, Percutaneous Approach (ICD-10-PCS; 2019-05-21)
PROC: B548ZZA Ultrasonography of Superior Vena Cava, Guidance (ICD-10-PCS; 2019-05-21)
PROC: 30233R1 Transfusion of Nonautologous Platelets into Peripheral Vein, Percutaneous Approach (ICD-10-PCS; 2019-05-24)
PROC: 0T9B70Z Drainage of Bladder with Drainage Device, Via Natural or Artificial Opening (ICD-10-PCS; 2019-05-25)
PROC: 0DH63UZ Insertion of Feeding Device into Stomach, Percutaneous Approach (ICD-10-PCS; 2019-06-06)
DX: I71.4 Abdominal aortic aneurysm, without rupture (principal); G92 Toxic encephalopathy; J15.0 Pneumonia due to Klebsiella pneumoniae; I82.621 Acute embolism and thrombosis of deep veins of right upper extremity; E87.0 Hyperosmolality and hypernatremia; L03.113 Cellulitis of right upper limb; K91.89 Other postprocedural complications and disorders of digestive system; F10.231 Alcohol dependence with withdrawal delirium; Z99.11 Dependence on respirator [ventilator] status; E87.2 Acidosis; E86.1 Hypovolemia; D75.82 Heparin induced thrombocytopenia (HIT); E66.9 Obesity, unspecified; R13.10 Dysphagia, unspecified; R63.3 Feeding difficulties; L30.9 Dermatitis, unspecified; K21.9 Gastro-esophageal reflux disease without esophagitis; E88.09 Other disorders of plasma-protein metabolism, not elsewhere classified; K44.9 Diaphragmatic hernia without obstruction or gangrene; E11.65 Type 2 diabetes mellitus with hyperglycemia; I10 Essential (primary) hypertension; Z86.79 Personal history of other diseases of the circulatory system; Z82.49 Family history of ischemic heart disease and other diseases of the circulatory system; Z87.891 Personal history of nicotine dependence; Z79.4 Long term (current) use of insulin
CPT/HCPCS: 36415; 36573; 36600; 70450; 71045; 74018; 74230; 76705; 80048; 80053; 80074; 81001; 82330; 82533; 82542; 82607; 82803; 82947; 82962; 83605; 83615; 83735; 84100; 84132; 84134; 84295; 84443; 84478; 85014; 85025; 85384; 85610; 85730; 86022; 86850; 86900; 87070; 87077; 87081; 87086; 87186; 87205; 87389; 88305; 93970; 94002; 94003; 94640; 94667; 94668; B4087; C1768; G0378; J0610; J0690; J0696; J0712; J1100; J1170; J1644; J1650; J1815; J2250; J2310; J2405; J2704; J2710; J2720; J3010; J3411; J3475; J3480; J3486; J7613; J7620; P9045; C1751; C9113; J0330; J0360; J1630; J1652; J1940; J2060; J2270; J2370; J2765; J3420; J7030; J7040; J7050; J7120; P9035; Q0177